=== PATIENT | female | born 1980 | race Caucasian/White ===

== ENCOUNTER 2025-05-12 06:07 | Emergency (ER) | payer OTHER, SELFPAY ==
--- NOTE | 2025-05-12 | ECG_ITS ---
Test Reason : PALPITATIONS Blood Pressure : */* mmHG Vent. Rate : 94 BPM Atrial Rate : 94 BPM P-R Int : 126 ms QRS Dur : 88 ms QT Int : 366 ms P-R-T Axes : 50 42 67 degrees QTcB Int : 457 ms Normal sinus rhythm Cannot rule out Anterior infarct , age undetermined Abnormal ECG When compared with ECG of 20-Mar-2014 22:36, No significant change was found Referred By: Generic ED Physician Electronically Signed By: PRETTY HUFF
--- NOTE | ~2025-05-12 | CT_ITS ---
EXAMINATION: CT CHEST ANGIOGRAPHY WITH IV CONTRAST INDICATION: chest pain, SOB, near syncope, concern for DVT COMPARISON: Chest x-ray from the same day TECHNIQUE: Helical CT scan of the chest was performed following administration of intravenous contrast (65 mL Omnipaque 350). The contrast bolus was timed to optimally opacify the pulmonary arteries. Thin sections were obtained through the pulmonary arteries. Coronal and sagittal reformatted images were generated. 3D/MIP reconstructed images are also obtained and reviewed. This CT exam was performed with one or more of the following dose reduction techniques: automated exposure control, adjustment of the mA and/or kV according to patient size, use of iterative reconstruction technique. DLP: 223 mGy-cm CHEST: THYROID: 1.2 x 1.7 cm left lower thyroid nodule with central calcification. PULMONARY ARTERIES: No intraluminal filling defects are identified within the pulmonary arteries to suggest pulmonary emboli. Pulmonary arteries are normal in size. No evidence of right heart strain. No reflux of contrast into the liver. LUNGS: The lungs are clear. MEDIASTINUM: There is no mediastinal lymphadenopathy. DEACON: There is no hilar lymphadenopathy. CARDIOVASCULATURE: The heart is normal in size. There is no pericardial effusion. The thoracic aorta is normal in caliber. DEGREE OF CORONARY CALCIFICATION: none PLEURA: There is no pleural effusion. No pneumothorax. MAIN AIRWAYS: The mainstem bronchi and proximal branches are patent. AXILLA: There are small bilateral axillary lymph nodes. No enlarged lymph nodes. There is a 1.8 x 2 cm soft tissue density in the upper inner quadrant of the right breast. This has radiopaque density suggestive of a surgical clip. Correlation with clinical history and mammogram recommended. Surgical clip versus calcification in the central upper left breast. UPPER ABDOMEN: The visualized portions of the liver, spleen, and adrenals are unremarkable. BONES AND SOFT TISSUES: Unremarkable. CT/CT angio chest PE protocol IMPRESSION: No evidence of pulmonary emboli. 2 cm lesion in the upper inner quadrant of the right breast and surgical clip. Correlation with clinical history and mammogram recommended. 1.2 x 1.7 cm left thyroid nodule. Follow-up thyroid ultrasound recommended. Electronically signed by: Tammy Sheehan MD 05/12/2025 09:15 AM EST RP
--- NOTE | ~2025-05-12 | XR_ITS ---
CLINICAL HISTORY: palpations 1 view chest x-ray Comparison: None provided Findings: Lungs are mildly hyperinflated and clear. Heart size is normal. No acute fracture. IMPRESSION: 1. No acute findings. This document has been electronically signed by: Jai Ordoñez MD on 05/12/2025 06:54:27
[2025-05-12 06:14] VITALS: BP 156/81; PULSE 104; RESP 20; TEMP 36.2; O2SAT 98
--- NOTE | 2025-05-12 06:58 | ED_ITS ---
HPI - General Adult General Chief complaint: General Medical Stated complaint: Elevated heart rate 122, feverish Time Seen by Provider: 05/12/25 06:46 Source: patient Mode of arrival: ambulatory Limitations: no limitations History of Present Illness ED Provider: Disha Shearer PA-C HPI narrative: Patient is a 44 year old assigned female at with a history of recent recovery from a 6 week pneumonia and an abnormal stress test presenting to the emergency department today with an elevated heart rate, chest pain, and shortness of breath. Patient states that 2 weeks ago she recovered from a 6 week long pneumonia after a course of antibiotics and over the last week she has developed a virus with nasal congestion. Patient states that she has been having intermittent shortness of breath + chest pain for which she had a stress test through [employer] and was told it was abnormal. Patient states that she had an appointment scheduled today with cardiology about this abnormal stress test but had to cancel the appointment because of her current viral illness. Patient states that this morning she woke up feeling an intense warm feeling and her heart rate went up to the 140s. Patient states that she is having intermittent shortness of breath. 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 Patient states that she has had some intermittent lightheadedness as well. Patient denies any recent travel. Patient denies any other complaints at this time. Related Data Allergies Allergy/AdvReac Type Severity Reaction Status Date / Time adhesive (Adhesive) Allergy Unknown ITCHING Verified 05/12/25 06:16 Crustaceans Allergy Mild RASH Uncoded 03/11/20 17:24 Review of Systems 2 Constitutional: Constitutional: Reports as per HPI Eyes: Eyes: Reports as per HPI ENT: Reports as per HPI Cardiovascular: Cardiovascular: Reports as per HPI Respiratory: Respiratory: Reports as per HPI Gastrointestinal: Gastrointestinal: Reports as per HPI Genitourinary: Genitourinary: Reports as per HPI Musculoskeletal: Musculoskeletal: Reports as per HPI Integumentary/Breasts: Skin/Breast: Reports as per HPI Neurologic: Reports as per HPI Psychiatric: Psychiatric: Reports as per HPI Endocrine: Endocrine: Reports as per HPI Hematologic/Lymphatic: Hematologic/Lymphatic: Reports as per HPI Allergic/Immunologic: Allergic/Immunologic: Reports as per HPI [facility] Past Medical History Attestation statement: The following information was validated with the patient. Source: old records reviewed and nursing notes reviewed Social History Social History Smoked in Last 30 Days: No Use of substances other than those prescribed or required for medical reasons: No Advance Directives: No Advance Directives Information Provided: Yes Do you have a plan to hurt others: No Plan Patient : No Physical Exam ED Vital Signs: Vital Signs - 24 hr 05/12/25 06:14 05/12/25 07:41 05/12/25 10:49 Temperature 97.2 F 98.1 F 97.8 F Pulse Rate 104 H 79 74 Respiratory Rate 20 17 14 Blood Pressure 156/81 H 128/72 123/70 Pulse Oximetry 98 97 96 Oxygen Delivery Method Room Air Room Air Room Air 05/12/25 11:18 Temperature 97.8 F Pulse Rate 74 Respiratory Rate 14 Blood Pressure 123/70 Pulse Oximetry 96 Oxygen Delivery Method Room Air BMI result Body Mass Index 8.6 Const General: cooperative, no acute distress, alert and awake Nutritional Appearance: well nourished Orientation/consciousness: patient oriented x3 HENMT Head: Yes normal to inspection and Yes atraumatic Ears: hearing grossly normal bilaterally and external ears normal General nose exam: Normal external nose present, no nasal discharge noted and no epistaxis Face and sinus: Yes normal facial exam, No abrasion and No laceration Mouth: Normal oral and palatal mucosa present, no drooling and no muffled voice Eyes General: appearance normal, both eyes and all related structures Periorbital: periorbital findings normal Eyelids: Yes eyelids normal Conjunctivae: conjunctivae normal Pupils: Equal, round and reactive pupils present EOM: EOMs intact bilaterally Neck Neck: Yes normal visual inspection and Yes full ROM Resp Effort & Inspection: normal respiratory effort and able to speak in complete sentences Neuro General: patient oriented x3, moves all extremities and CN's II-XI intact bilaterally Cranial nerves: Yes Equal, round and reactive pupils present Cognition (Neuro): normal cognition Extrem General: Yes normal to inspection, Yes full ROM and Yes capillary refill normal Psych Appearance: grossly normal Mental Status: mental status grossly normal Affect: normal affect Attitude: cooperative Thought process: Normal thought process present Thought content: Normal thought content present Insight: Good insight present (Psych) Medications Administered Discontinued Medications Generic Name Dose Route Start Last Admin Trade Name Yuliana PRN Reason Stop Dose Admin Sodium Chloride 1,000 mls @ 999 mls/hr 05/12/25 07:15 05/12/25 08:46 Ns IV 05/12/25 08:15 Infused .Q1H1M NADEEM Infusion Iohexol 65 ml 05/12/25 08:43 05/12/25 08:44 Iohexol 350 Mg/Ml 100 Ml Infus..Btl IV 05/12/25 08:44 65 ml ONCE ONE Administration Medical Decision Making Medical Decision Making [facility] Narrative: Patient is a 44 year old assigned female at with a history of recent recovery from a 6 week pneumonia and an abnormal stress test presenting to the emergency department today with an elevated heart rate, chest pain, and shortness of breath. Patient's physical exam was as noted in the physical exam portion of this note. By the time of my evaluation, the patient's pulse had become normal and not tachycardic though she did arrive in the department tachycardic. Patient's blood work was unremarkable. Patient's EKG was unremarkable. Patient's chest x-ray showed no acute process. Patient's CT PE study showed an incidental finding of a thyroid nodule but was otherwise negative. Patient's stress test performed in December of 2024 at [facility] showed: NSR with PACs but during exercise there was upsloping ST depressions in the inferolateral leads + V3-V6 with no chest pain reported during and normal nuclear imaging. Given the patient's concerning history and episode (now resolved) from today - I spoke with the orthopedic nurse practitioner pilot control operator (Dr. Sun) who stated he would coordinate getting the patient seen in the office sooner than her scheduled July follow up with the other cardiology office. I explained my physical exam findings as well as all test results to the patient. I answered all questions asked by the patient. I had an extensive conversation with the patient about continuing to avoid extraneous activity / exercise as the cardiology team at [facility] had recommended and added that she should avoid caffeine / stimulants. I stressed the importance of the patient taking her medication as directed (either prescribed or as the over the counter packaging recommends). I stressed the importance of the patient following up with her primary care provider and the cardiology team. I stressed the importance of the patient returning to the emergency department immediately if her symptoms were to return or if she were to develop any dizziness, shortness of breath, difficulty breathing, chest pain, blurry vision, loss of vision, nausea, vomiting, abdominal pain, fever, chills, back pain, or any other complaints. Patient verbalized agreement and understanding with this treatment plan and discharge. Differential Diagnosis Differential Diagnoses: The differential diagnosis associated with the presentation includes Atypical chest pain Tachycardia NSTEMI STEMI PNA PE Admission/Observation Consideration of admission/observation: Escalation of care including admission/observation considered Patient would have been admitted to the hospital had her work up had any findings where hospital admission was appropriate and her clinical presentation warranted hospital admission. Consult Healthcare Provider Management of the patient was discussed with: Hydraulic Billet Maker (spoke with the orthopedic nurse practitioner pilot control operator as noted in the MDM Rationale portion of this note. ) Lab Data [facility] Lab Attestation statement: I reviewed the patient's lab results. My interpretation of these results are in the MDM Rationale portion of this note. 05/12/25 06:54 05/12/25 06:54 Labs: Lab Results 05/12/25 05/12/25 Range/Units 06:48 06:54 WBC 4.6 L (4.8-10.8) X10*3/uL RBC 4.36 (4.20-5.50) X10*6/uL Hgb 12.7 (12.0-16.0) g/dl Hct 38.7 (37.0-47.0) % MCV 88.8 (80.0-98.0) fL MCH 29.1 (27.0-33.0) pg MCHC 32.8 (31.0-35.0) g/dl RDW 13.6 (11.0-16.0) % Plt Count 242 (160-400) X10*3/uL MPV 9.0 L (9.4-12.3) fL Immature Gran % (Auto) 0.2 (0.0-0.4) % Neut % (Auto) 39.3 L (45-73) % Lymph % (Auto) 42.1 H (20-40) % [facility] % (Auto) 13.0 H (2-11) % Eos % (Auto) 4.3 H (0-4) % Baso % (Auto) 1.1 (0-2) % Lymph # (Auto) 1.9 (1.2-4.9) X10*3/uL [facility] # (Auto) 0.6 (0.1-1.2) X10*3/uL Eos # (Auto) 0.2 (0.0-0.4) X10*3/uL Baso # (Auto) 0.1 (0.0-0.2) X10*3/uL Abs Immat Gran (auto) 0.01 (0.00-0.03) X10*3/uL Absolute Neuts (auto) 1.8 L (2.0-8.3) x10*3/uL Absolute Nucleated RBC 0.000 (0.0-0.012) X10*3/uL Nucleated RBC % (auto) 0.0 (0.0-0.2) /100WBC D-Dimer High Sensitivty < 150 NG/ML Sodium 140 (135-145) mmol/L Potassium 4.4 (3.3-5.1) mmol/L Chloride 106 (96-108) mmol/L Carbon Dioxide 25 (22-29) mmol/L Anion Gap 13 (12-20) BUN 12 (9-16) mg/dL Creatinine 0.71 (0.5-1.4) mg/dL Estim Creat Clear Calc 35.4 Estimated GFR > 60 Random Glucose 105 (60-115) mg/dL Calcium 8.6 (8.4-10.2) mg/dL Magnesium 1.9 (1.6-2.6) mg/dL Total Bilirubin 0.3 (0.0-1.0) mg/dL AST 22 (5-31) U/L ALT 20 (0-31) U/L Alkaline Phosphatase 60 (39-117) U/L Troponin I High Sens < 2.7 (<3.5-17.0) ng/L NT-Pro-B Natriuret Pep 44.5 (<300) pg/mL Total Protein 6.8 (6.5-8.0) g/dL Albumin 4.4 (3.5-5.0) g/dL TSH 4.11 H (0.32-4.0) uIU/mL Free T4 0.88 (0.71-1.85) ng/dL Influenza Type A (PCR) NEGATIVE (Negative) Influenza Type B (PCR) NEGATIVE (Negative) RSV RNA Qual (PCR) NEGATIVE (Negative) SARS-CoV-2 RNA (RT-PCR) NEGATIVE (Negative) Independent Interpretation I performed an independent interpretation of an: EKG, Plain X-Ray and CT Scan Interpretation: My interpretation is in agreement with the radiologist's impression of these imaging studies. L Reason for Exam: palpations CLINICAL HISTORY: palpations 1 view chest x-ray Comparison: None provided Findings: Lungs are mildly hyperinflated and clear. Heart size is normal. No acute fracture. IMPRESSION: 1. No acute findings. This document has been electronically signed by: Jai Ordoñez MD on 05/12/2025 06:54:27 Dictated By: Jai Ordoñez Jr, MD Signed By: Electronically signed by Jai Ordoñez Jr, MD 05/12/25 0655 Report Number: [id number]: Total DLP = 223.00 mGy-cm Reason for Exam: chest pain, SOB, near syncope, concern for DVT EXAMINATION: CT CHEST ANGIOGRAPHY WITH IV CONTRAST INDICATION: chest pain, SOB, near syncope, concern for DVT COMPARISON: Chest x-ray from the same day TECHNIQUE: Helical CT scan of the chest was performed following administration of intravenous contrast (65 mL Omnipaque 350). The contrast bolus was timed to optimally opacify the pulmonary arteries. Thin sections were obtained through the pulmonary arteries. Coronal and sagittal reformatted images were generated. 3D/MIP reconstructed images are also obtained and reviewed. This CT exam was performed with one or more of the following dose reduction techniques: automated exposure control, adjustment of the mA and/or kV according to patient size, use of iterative reconstruction technique. DLP: 223 mGy-cm CHEST: THYROID: 1.2 x 1.7 cm left lower thyroid nodule with central calcification. PULMONARY ARTERIES: No intraluminal filling defects are identified within the pulmonary arteries to suggest pulmonary emboli. Pulmonary arteries are normal in size. No evidence of right heart strain. No reflux of contrast into the liver. LUNGS: The lungs are clear. MEDIASTINUM: There is no mediastinal lymphadenopathy. DEACON: There is no hilar lymphadenopathy. CARDIOVASCULATURE: The heart is normal in size. There is no pericardial effusion. The thoracic aorta is normal in caliber. DEGREE OF CORONARY CALCIFICATION: none PLEURA: There is no pleural effusion. No pneumothorax. MAIN AIRWAYS: The mainstem bronchi and proximal branches are patent. AXILLA: There are small bilateral axillary lymph nodes. No enlarged lymph nodes. There is a 1.8 x 2 cm soft tissue density in the upper inner quadrant of the right breast. This has radiopaque density suggestive of a surgical clip. Correlation with clinical history and mammogram recommended. Surgical clip versus calcification in the central upper left breast. UPPER ABDOMEN: The visualized portions of the liver, spleen, and adrenals are unremarkable. BONES AND SOFT TISSUES: Unremarkable. CT/CT angio chest PE protocol IMPRESSION: No evidence of pulmonary emboli. 2 cm lesion in the upper inner quadrant of the right breast and surgical clip. Correlation with clinical history and mammogram recommended. 1.2 x 1.7 cm left thyroid nodule. Follow-up thyroid ultrasound recommended. Electronically signed by: Tammy Sheehan MD 05/12/2025 09:15 AM [facility] Dictated By: Tammy Sheehan MD Signed By: Electronically signed by Tammy Sheehan MD 05/12/25 0915 I independently interpreted this EKG and am in agreement with the below findings: Vent. Rate: 94 BPM Atrial Rate: 94 BPM P-R Int: 126 ms QRS Dur: 88 ms QT Int: 366 ms P-R-T Axes: 50 42 67 degrees QTcB Int: 457 ms Normal sinus rhythm When compared with ECG of 20-Mar-2014 22:36, No significant change was found DD/ 0614 Radiology Impression Discussion of test interpretation with radiology: I have reviewed the radiologist's reading. Critical Care Time Critical Care Time Critical Care Time: Yes Total Critical Care Time: 34 Attestation: I spent 34 minutes of Critical Care Time with this patient. This does not include time spent on separately reported billable procedures. Discharge Plan Discharge Clinical Impression: Tachycardia, Thyroid nodule Patient Disposition: Home, Self-Care Instructions: Tachycardia (ED) Additional Instructions: Your work up today showed NO EMERGENT process for your symptoms however, it is crucial you follow up with the cardiology team. Your CT chest showed an incidental finding of a 1.2 x 1.7 cm left thyroid nodule which our radiologist recommends an ultrasound for. It is crucial you follow up with your primary care provider about this. Your thyroid function is normal however, this does not confirm the nodule to be benign. Please avoid exertion / strenuous activity and stimulant use of any kind (including caffeine) until you are cleared to do so by the cardiology team. IF you are prescribed home medications and/or you are taking over the counter medications at home - it is very important you continue to do so as prescribed / directed unless told otherwise. Follow up with your primary care provider. Return to the emergency department immediately if your symptoms worsen or if you develop any numbness, tingling, dizziness, shortness of breath, difficulty breathing, chest pain, blurry vision, loss of vision, nausea, vomiting, abdominal pain, fever, chills, back pain, or any other complaints. Please see the information below about our Patient Portal. If you are not yet enrolled in the [facility] Patient Portal, you will receive an enrollment email invitation following your visit to any [facility] setting. You may also self-enroll in the Patient Portal by visiting our website: [email or web address] The following information is required to access the Patient Portal: - Your [facility] Medical Record Number - Your personal home email address (must match what is in your electronic medical record, Registration staff can assist with this) - Name - Date of Capabilities of the Patient Portal: - Message some providers - View upcoming appointments - Access your health summary, medical history, and visit history - View current conditions and allergies - View procedure and lab results - View your medications, including guidelines, side effects, and precautions - Complete pre-appointment questionnaires requested by your provider - Ready summary reports of your office visits and procedures To access the Patient Portal Mobile Amy, follow these directions: - Search [employer] in the Amy Store or [employer] Store - Download the Amy - Search for [facility] - Enter your login/password Referrals: [facility] [Provider Group] Referral Note: Call to establish and follow up with the cardiology team. Stand Alone Forms: Work/School Release Interventions: ED Discharge Assessment Last Done: 05/12/25 11:18 Discharge Date/Time: 05/12/25 11:22 Print Language: Telugu
[2025-05-12 07:01] LABS: MANUAL DIFF FLAG NO
[2025-05-12 07:03] LABS: Hematocrit 38.7 % (37.0-47.0); Hemoglobin 12.7 g/dl (12.0-16.0); Imm Gran Abs Auto 0.01 X10*3/uL (0.00-0.03); Imm Gran Pct Auto 0.2 % (0.0-0.4); Lymphocytes Absolute Auto 1.9 X10*3/uL (1.2-4.9); Mean Corpuscular HGB Conc 32.8 g/dl (31.0-35.0); Mean Corpuscular Hemoglobin 29.1 pg (27.0-33.0); Mean Corpuscular Volume 88.8 fL (80.0-98.0); NRBC Abs Auto 0.000 X10*3/uL (0.0-0.012); NRBC Pct Auto 0.0 /100WBC (0.0-0.2); Platelet Count 242 X10*3/uL (160-400); Red Blood Count 4.36 X10*6/uL (4.20-5.50); White Blood Count 4.6 X10*3/uL (4.8-10.8)
[2025-05-12 07:15] LABS: Alanine Aminotransferase 20 U/L (0-31); Albumin Level 4.4 g/dL (3.5-5.0); Alkaline Phosphatase 60 U/L (39-117); Anion Gap 13 (12-20); Aspartate Amino Transferase 22 U/L (5-31); Blood Urea Nitrogen 12 mg/dL (9-16); Calcium 8.6 mg/dL (8.4-10.2); Carbon Dioxide 25 mmol/L (22-29); Chloride 106 mmol/L (96-108); Creatinine Clr Calc Pharmacy 35.4; Estimated Glomerular Filt Rate > 60; Potassium 4.4 mmol/L (3.3-5.1); Sodium 140 mmol/L (135-145); Total Protein 6.8 g/dL (6.5-8.0)
[2025-05-12 07:18] LABS: D Dimer High Sensitivity < 150 NG/ML
[2025-05-12 07:21] LABS: NT Pro B Type Natriuretic Pept 44.5 pg/mL (<300)
[2025-05-12 07:23] LABS: Troponin-I High Sensitivity < 2.7 ng/L (<3.5-17.0)
[2025-05-12 07:41] VITALS: BP 128/72; PULSE 79; RESP 17; TEMP 36.7; O2SAT 97
[2025-05-12 07:53] LABS: Resp Syncy Virus RNA Qual PCR NEGATIVE (Negative); SARS COV2 PCR INHOUSE NEGATIVE (Negative)
--- NOTE | 2025-05-12 08:16 | PC.NURSE ---
assumed care of pt at 0645. pt a&ox4. vss and up to date. nsr on the steward/stewardess dining room. pt presents to the ED c/o increased dizziness/lightheadedness/chest pain/hot flashes/sob/HR in the 140s upon awakening/getting out of bed this am. pt reports she recently had PNA x a few weeks ago where she finished the abx regimen and initially felt better. pt had a stress test completed at [facility] recently where the results displayed abnormal but no additional interventions were needed aside from following up w/ cardiology. pt had an appt scheduled w/ cardiology x today but had to cancel as she currently has a viral illness. pt otherwise has a 20gIV in the right AC - IVF infusing per provider order. pt pending chest CT to be completed at this time. otherwise on RA in no apparent distress. no sob/wob noted. respirations even/unlabored. plan of care ongoing. call sim placed within reach.
[2025-05-12] MEDS: iohexoL 350 MG/ML 100 ML INFUS..BTL 65 ML IV (08:44)
[2025-05-12 09:51] LABS: Magnesium 1.9 mg/dL (1.6-2.6)
[2025-05-12 10:47] LABS: Free T4 (Free Thyroxine) 0.88 ng/dL (0.71-1.85)
[2025-05-12 10:49] VITALS: BP 123/70; PULSE 74; RESP 14; TEMP 36.6; O2SAT 96
[2025-05-12 11:18] VITALS: BP 123/70; PULSE 74; RESP 14; TEMP 36.6; O2SAT 96
== END 2025-05-12 11:22 | disposition home or self-care (01) ==
PROVIDERS: Physician Assistant Medical; Emergency Provider Emergency Medicine
DX: R00.0 Tachycardia, unspecified (principal); E04.1 Nontoxic single thyroid nodule; Z91.013 Allergy to seafood; Z91.048 Other nonmedicinal substance allergy status; Z03.818 Encounter for observation for suspected exposure to other biological agents ruled out
CPT/HCPCS: 36415; 71045; 71275; 80053; 83735; 83880; 84439; 84443; 84484; 85025; 85379; 87637; 93005; 96360; 99285; Q9967

== ENCOUNTER → 2025-05-12 06:14 | Outpatient (BNV) | payer OTHER, SELFPAY | PROVIDERS: Emergency Provider Emergency Medicine; Visit Provider Internal Medicine | DX: R94.31 Abnormal electrocardiogram [ECG] [EKG] (principal); R00.2 Palpitations | CPT/HCPCS: 93010 ==

== ENCOUNTER → 2025-05-12 06:20 | Outpatient (BNV) | payer OTHER, SELFPAY | PROVIDERS: Visit Provider Radiology Diagnostic Radiology | DX: R07.9 Chest pain, unspecified (principal); R06.02 Shortness of breath; R55 Syncope and collapse; R00.2 Palpitations; N63.12 Unspecified lump in the right breast, upper inner quadrant; E04.1 Nontoxic single thyroid nodule | CPT/HCPCS: 71045; 71275 ==

== ENCOUNTER 2025-05-25 15:18 | Outpatient (AMB) | payer OTHER, SELFPAY ==
--- OUTSIDE RECORDS SUMMARY | 2007-09-18 23:00 | XMS_ITS | Encounter Summary ---
Author Organization [facility] Address [address] [place] [address] Phone Care Team Providers Care Corporate Risk Analyst Name Role Phone Unavailable Primary Care Provider Unavailabl e Encounter Details Date Type Department Care Team (Late st Contact Info) Description 09/19/2007 Hospital Encounter [facility],Outside Imaging [address] [place], [place] [phone] System, Provider Not In, PhD Partners [address] [address] Social History Tobacco Use Types Packs/Day Years Used Date Smoking Tobacco: Former Cigarettes Q uit: 2006 Smokeless Tobacco: Never Comments:Smoking History Pac ks/day: <=0.5 Alcohol Use Standard Drinks/Week Comments Yes 2 (1 standard drink = 0.6 oz pur e alcohol) Education Answer Date Recorded Are you interested in more education? Not on rosa e 10/19/2022 Are you concerned about learning? Not on file 10/19/2022 No 10/19/2022 No 10/19/2022 Food Answer Date Recorded Within the past 6 months we worried whether our food would run out before we got money to buy more. Never True 12/19/2024 Within the past 6 months the food we bought just didn't last and we didn't have enough money to get more. Never True Residential Stability Answer Date Recor ded What is your housing situation today? I have colby sing 12/19/2024 How many times have you move d in the past 12 months? Zero (I did not move) 12/19/2024 Paying for Meds Answer Date Recorded Do you have trouble paying for medicines? No 12/19/2024 Paying Utility Bills Answer Date Record ed Do you have trouble paying your heating or elect ricity bill? No 12/19/2024 Transportation Answer Date Recorded Has the lack of transportati on kept you from medical appointments or from getting medications? No 12/19/2024 Digital Access Answer Date Recorded No 12/19/2024 Yes 12/19/2024 Do you have reliable internet access at home? Ye s 12/19/2024 Do you have a device (e.g., phone, tablet, computer) with a working camera? Yes 12/19/2024 Intimate Partner Violence Answer Date R ecorded Are you denied basic needs s uch as food, clothing, or medical care? No 12/19/2024 In the past 12 months have y ou been in a relationship with a person who hurts, threatens, or tries to control you? No 12/19/2024 Are you denied basic needs s uch as food, clothing, or medical care? No 12/19/2024 In the past 12 months have y ou been in a relationship with a person who hurts, threatens, or tries to control you? No 12/19/2024 Comments Unknown Sex and Gender Information Value Date Recorded Sex Assigned at Not on file Legal Sex Female 8:06 PM EST Gender Identity Not on file Sexual Orientation Not on file documented as of this encounter Functional Status * Calculated C-SSRS Risk Score (Lifetime/Recent) Answer Date of Assessment Author No Risk Indicated 12/19/2024 12:19 PM EDT Aurora Phillip RN * [place] Suicide Severity Rating Scale (Screener/Recent Self-Report) Question Answer Date of Assessment Author 1. Wish to be (Past 1 Month) No 12/19/2024 12:19 PM EDT Aurora Phillip RN 2. Non-Specific Active Suici diamond Thoughts (Past 1 Month) No 12/19/2024 12:19 PM EDT Ashley Phillip RN 6. Suicidal Behavior (Lifetime) No 12:19 PM EDT Aurora Phillip RN documented as of this encounter Plan of Treatment Upcoming Encounters Date Type Department Care Team (Late st Contact Info) Description 08/11/2025 10:15 AM EST Office Visit [facility] [address] [facility] 3rd Floor, [address] [place] [address] Jorge Wang MD 22 [facility], [address] [place] [address] [email or web address] documented as of this encounter Procedures Procedure Name Priority Date/Time Associated Diagnosis Comments BI US BREAST OUTSIDE (NO INTERPRETATION) Routine 09/19/2007 12:00 AM EDT documented in this encounter Results * US Breast Outside (No Interpretation) (09/19/2007 12:00 AM EDT) Narrative SYSTEMGENERATED, DOCUMENTATION - 06/07/2021 3:50 PM EST This study is for PACS storage only and not for interpretation. us Provider Not In System PhD IMG OUTSIDE IMAGING W /OUT INTERPRETATION Final Result documented in this encounter Visit Diagnoses Not on filedocumented in this encounter Additional Source Comments The information contained in this document represents components of the legal health record. It is not the complete legal health record.[facility]
--- OUTSIDE RECORDS SUMMARY | 2009-11-03 23:00 | XMS_ITS | Encounter Summary ---
Author Organization [facility] Address [address] [place] [address] Phone Care Team Providers Care Recycling Technician Name Role Phone Unavailable Primary Care Provider Unavailabl e Encounter Details Date Type Department Care Team (Late st Contact Info) Description 11/04/2009 Hospital Encounter [facility],Outside Imaging 30 [place], [place] [phone] System, Provider Not In, PhD Partners [address] [address] Social History Tobacco Use Types Packs/Day Years [...] 12:19 PM EDT Aurora Phillip RN * [place] Suicide Severity Rating Scale (Screener/Recent Self-Report) Question [...] Description 08/11/2025 10:15 AM EST Office Visit [facility] 22 [facility] 3rd Floor, [address] [place] [address] Jorge Wang MD 22 [facility], [address] [place] [address] [email or web address] documented as of this encounter Procedures Procedure [...] It is not the complete legal health record.[facility]
--- OUTSIDE RECORDS SUMMARY | 2010-05-18 | XMS_ITS | Encounter Summary ---
Author Organization [facility] Address [address] [place] [address] Phone Care Team Providers Care Pharmacy Associate Name Role Phone Unavailable Primary Care Provider Unavailabl e Encounter Details Date Type Department Care Team (Late st Contact Info) Description 05/18/2010 Hospital Encounter [facility],Outside Imaging 30 [place], [place] [phone] System, Provider Not In, PhD Partners [address] [address] Social History Tobacco Use Types Packs/Day Years [...] 12:19 PM EDT Aurora Phillip RN * [place] Suicide Severity Rating Scale (Screener/Recent Self-Report) Question [...] Description 08/11/2025 10:15 AM EST Office Visit [facility] 22 [facility] 3rd Floor, [address] [place] [address] Jorge Wang MD 22 [facility], [address] [place] [address] [email or web address] documented as of this encounter Procedures Procedure Name Priority Date/Time Associated Diagnosis Comments BI US BREAST OUTSIDE (NO INTERPRETATION) Routine 05/18/2010 12:00 AM EST documented in this encounter Results * US Breast Outside (No Interpretation) (05/18/2010 12:00 AM EST) Narrative SYSTEMGENERATED, DOCUMENTATION - 06/07/2021 4:00 PM EST This study is for PACS storage only and not for interpretation. us Provider Not In System PhD IMG OUTSIDE IMAGING W /OUT INTERPRETATION Final Result documented in this encounter Visit Diagnoses Not on filedocumented in this encounter Additional Source Comments The information contained in this document represents components of the legal health record. It is not the complete legal health record.[facility]
--- OUTSIDE RECORDS SUMMARY | 2011-03-20 23:00 | XMS_ITS | Encounter Summary ---
Author Organization [facility] Address [address] [place] [address] Phone Care Team Providers Care County Attorney Name Role Phone Unavailable Primary Care Provider Unavailabl e Encounter Details Date Type Department Care Team (Late st Contact Info) Description 03/21/2011 Hospital Encounter [facility],Outside Imaging 30 [place], [place] [phone] System, Provider Not In, PhD Partners [address] [address] Social History Tobacco Use Types Packs/Day Years [...] 12:19 PM EDT Aurora Phillip RN * [place] Suicide Severity Rating Scale (Screener/Recent Self-Report) Question [...] Description 08/11/2025 10:15 AM EST Office Visit [facility] 22 [facility] 3rd Floor, [address] [place] [address] Jorge Wang MD 22 [facility], [address] [place] [address] [email or web address] documented as of this encounter Procedures Procedure Name Priority Date/Time Associated Diagnosis Comments BI US BREAST OUTSIDE (NO INTERPRETATION) Routine 03/21/2011 12:00 AM EDT documented in this encounter Results * US Breast Outside (No Interpretation) (03/21/2011 12:00 AM EDT) Narrative SYSTEMGENERATED, DOCUMENTATION - 06/07/2021 3:54 PM EST This study is for PACS storage only and not for interpretation. us Provider Not In System PhD IMG OUTSIDE IMAGING W /OUT INTERPRETATION Final Result documented in this encounter Visit Diagnoses Not on filedocumented in this encounter Additional Source Comments The information contained in this document represents components of the legal health record. It is not the complete legal health record.[facility]
--- OUTSIDE RECORDS SUMMARY | 2013-02-24 23:05 | XMS_ITS | Encounter Summary ---
Author Organization [facility] Address [address] [place] [address] Phone Care Team Providers Care Project Manager Senior Name Role Phone Unavailable Primary Care Provider Unavailabl e Encounter Details Date Type Department Care Team (Late st Contact Info) Description 02/25/2013 12:05 AM EDT Hospital Encounter [facility],Outside Imaging 30 [place] [address] System, Provider Not In, PhD Partners [address] [address] Social History Tobacco Use Types Packs/Day Years [...] 12:19 PM EDT Aurora Phillip RN * [place] Suicide Severity Rating Scale (Screener/Recent Self-Report) Question Answer Date of Assessment Author 1. Wish to be (Past 1 Month) No 12/19/2024 12:19 PM ABET Aurora Phillip RN 2. Non-Specific Active Suici diamond Thoughts (Past 1 Month) No 12/19/2024 12:19 PM EDT Ashley Phillip RN 6. Suicidal Behavior (Lifetime) No 12:19 PM ABET Aurora Phillip RN documented as of this encounter Plan of Treatment Upcoming Encounters Date Type Department Care Team (Late st Contact Info) Description 08/11/2025 10:15 AM EST Office Visit [facility] 22 [facility] 3rd Floor, [address] [place] [address] Jorge Wang MD [address] [facility], [address] [place] [address] [email or web address] documented as of this encounter Procedures Procedure Name Priority Date/Time Associated Diagnosis Comments BI US BREAST OUTSIDE (NO INTERPRETATION) Routine 02/25/2013 12:05 AM EDT documented in this encounter Results * US Breast Outside (No Interpretation) (02/25/2013 12:05 AM EDT) Narrative SYSTEMGENERATED, DOCUMENTATION - 06/07/2021 3:52 PM EST This study is for PACS storage only and not for interpretation. us Provider Not In System PhD IMG OUTSIDE IMAGING W /OUT INTERPRETATION Final Result documented in this encounter Visit Diagnoses Not on filedocumented in this encounter Additional Source Comments The information contained in this document represents components of the legal health record. It is not the complete legal health record.[facility]
[2025-05-25 15:28] VITALS: BP 100/62; PULSE 80; BMI 25.0
--- NOTE | 2025-05-25 15:28 | A.OFFVIS_ITS ---
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 Ticket Attendant Required: No Allergies adhesive (Adhesive) Allergy (Unknown, Verified 05/25/25 15:30) ITCHING Crustaceans Allergy (Mild, Uncoded 05/25/25 15:30) RASH Medication List - Last Reconciled 05/25/25 by Neyda Quintana NP-C aspirin 81 mg PO DAILY hydroxyzine HCl 10 mg PO ONCE PRN norethindrone (contraceptive) (April) 0.35 mg PO DAILY HPI 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 In the emergency room, the patient's lab work was unremarkable, the EKG was normal, and a chest x-ray showed no acute process. A CT scan was negative for pulmonary embolism, and showed no coronary calcifications. Tests for influenza, RSV, and COVID were negative. Troponin and BNP levels were normal. A stress test from [facility] showed sinus rhythm with PACs and upsloping ST depressions in the inferior-lateral leads and V3 through V6, with no chest discomfort and normal nuclear imaging. An echocardiogram from 12/31/2024 revealed an EF of 65%, no wall motion abnormalities, normal atrial size, and no significant valve abnormalities. The most recent EKG from 05/12/2025 showed sinus rhythm at a rate of 94 and could not exclude a prior anterior infarct. She reports having symptoms of heart palpitations followed by vague chest discomfort for over a year. At times she will get mild aching discomfort into her left arm. Occassional lightheadedness has occurred if she gets up quickly. S he recalls fainting once while , 15 years ago and none since then. Her breathing is normal and activity tolerance reported as good. The patient reports a history of consuming up to four cups of black tea daily but has stopped since the ER visit. Symptoms have improved but not fully resolved despite caffeine cessation. She has no cardiac history and denies diagnosis of HTN. HLD or DM. She did smoke in the past but quit in 2017. No routine alcohol use. Father has history of CAD with coronary stent in his late 50s. Mother has history of mitral valve prolapse. [facility] Family History Father History of cardiac cath H/O heart artery stent Review of Systems Const All systems reviewed & are unremarkable except as noted in HPI and below ENT Denies dizziness Card Details: Heart palpitations - prior to the ache in chest Reports chest pain (ache in mid chest), Denies chest pain at rest, Denies chest pain with activity, Denies rapid heart rate, Denies pedal edema, Denies edema, Denies leg edema, Denies lightheadedness, Denies palpitations, Denies dyspnea, Denies dyspnea on exertion and Denies orthopnea Resp Denies cough, Denies dyspnea and Denies dyspnea on exertion GI Denies hematochezia and Denies change in stool character Musc Denies abnormal gait, Denies limited range of motion, Denies muscle cramps, Denies muscle weakness, Denies numbness, Denies radiating pain into limb, Denies stiffness and Denies tingling Neuro Denies abnormal gait, Denies dizziness, Denies numbness and Denies tingling Endo Denies palpitations Physical Exam Vital Signs: Last Vital Signs Pulse 80 05/25/25 15:28 BP 100/62 05/25/25 15:28 BMI result Body Mass Index 25.0 Const General: cooperative, healthy appearing, comfortable and no acute distress Orientation/consciousness: patient oriented x3 Neck Neck: Yes normal visual inspection Resp Effort & Inspection: normal respiratory effort Auscultation: clear to auscultation bilaterally, no crackles, no rales, no rhonchi and no wheezes Cardio Rate: regular rate Rhythm: regular rhythm Heart sounds: S1 normal heart sound present, S2 normal heart sound present, no gallops, no murmurs and no rubs Neuro General: patient oriented x3 Extrem General: Yes normal to inspection Psych Appearance: grossly normal Mental Status: mental status grossly normal Speech and movement: Normal speech and movement present Assessment & Plan Assessment & Plan (1) Palpitations: Code(s): R00.2 - Palpitations Category: Medical Plan: Report of brief fluttering in chest and elevated rates at times, followed by vague ache in chest. Recent ER evaluation without significant findings. Recent echocardiogram with normal EF and normal atrial sizes. Recent nuclear stress test with normal myocardial perfusion imaging. EKG from 05/12/2025 showing sinus rhythm, normal AZ, QRS and QTC intervals, rate 94. She could be having arrhythmia such as atrial tachycardia or extrasystoles. Will check 7 day Holter monitor. Plan to call her with the results. Cardiology follow-up 6-8 weeks, sooner if needed. (2) Chest discomfort: Code(s): R07.89 - Other chest pain Category: Medical Plan: Nonexertional chest discomfort as described above. Recent ER evaluation and she ruled out for ACS. Not likely to be related to CAD in the setting of normal echo, nuclear stress test and recent CT showing no coronary calcifications. She also has low cardiac risk profile with family history only. Checking for arrhythmia as above (3) Abnormal stress ECG: Code(s): R94.39 - Abnormal result of other cardiovascular function study Category: Medical Plan: Exercise EKGs with abnormal findings suggesting ischemia however followed by nuclear imaging showing no infarct or ischemia. (4) Hospital discharge follow-up: Code(s): Z51.89 - Encounter for other specified aftercare Category: Medical Plan: ED notes, Marcelino Mendenhall notes reviewed Plan Time spent on chart review, documentation, interview, assessment Orders: Orders ECG 7 day holter monitor Today R00.2 - Palpitations, R94.39 - Abnormal result o f other cardiovascular function study Coding Level of Care Code New Pt Level 4 (73075) Complex visit Add On G2211 Diagnoses Palpitations R00.2 Chest discomfort R07.89 Abnormal stress ECG R94.39 Hospital discharge follow-up Z51.89 Time Spent (min) 32
--- OUTSIDE RECORDS SUMMARY | 2025-05-25 18:21 | XMS_ITS | Encounter Summary ---
Author Organization [facility] Address [address] [facility] [address] [place] [address] Phone Care Team Providers Care Phlebotomy Lab Assistant Name Role Phone Dario Melendez MD Primary Care Prov ider Encounter Details Date Type Department Care Team (Late Contact Info) Description 06/07/2021 Ancillary Orders [facility],Outside Imaging [address] [place] [address] System, Provider Not In, [facility] [address] [address] Social History Tobacco Use Types Packs/Day Years Used Date Smoking Tobacco: Former Cigarettes Q uit: 2007 Smokeless Tobacco: Never Comments:Smoking History Pac ks/day: <=0.5 Alcohol Use Standard Drinks/Week Comments Yes 2 (1 standard drink = 0.6 oz pur e alcohol) Comments Unknown Sex and Gender Information Value Date Recorded Sex Assigned at Not on file Legal Sex Female 8:06 PM EST Gender Identity Not on file Sexual Orientation Not on file documented as of this encounter Plan of Treatment Upcoming Encounters Date Type Department Care Team (Late st Contact Info) Description 08/11/2025 10:15 AM EST Office Visit [facility] [address] [place] [address] 3rd Floor, [address] [place] [address] Jorge Wang MD [address] [facility], [address] [place] [address] documented as of this encounter Results * US Breast Outside (No Interpretation) (04/20/2015 12:05 AM EDT) Narrative SYSTEMGENERATED, DOCUMENTATION - 06/07/2021 3:57 PM EST This study is for PACS storage only and not for interpretation. us Provider Not In System [facility] OUTSIDE IMAGING W /OUT INTERPRETATION Final Result documented in this encounter Visit Diagnoses Not on filedocumented in this encounter Care Teams Phlebotomy Lab Assistant Relationship Specialty Start Date End Date Dario Melendez MD [address] [place] [phone] [email or web address] PCP - General Family Medicine 12/25/18 documented as of this encounter Additional Source Comments The information contained in this document represents components of the legal health record. It is not the complete legal health record.[facility]
--- OUTSIDE RECORDS SUMMARY | 2025-05-25 18:21 | XMS_ITS | Encounter Summary ---
Author Organization [facility] Address [address] [facility] [address] [place] [address] Phone Care Team Providers Care Site Auditor Name Role Phone Dario Melendez MD Primary Care Prov ider Encounter Details Date Type Department Care Team (Late Contact Info) Description 06/07/2021 Ancillary Orders [facility],Outside Imaging [address] [place] [address] System, Provider Not In, [facility] [address] [address] Social History Tobacco Use Types Packs/Day Years [...] Description 08/11/2025 10:15 AM EST Office Visit [facility] [address] [place] [address] 3rd Floor, [address] [place] [address] Jorge Wang MD [address] [facility], [address] [place] [address] documented as of this encounter Results * US Breast Outside (No Interpretation) (09/19/2007 12:00 AM EDT) Narrative SYSTEMGENERATED, DOCUMENTATION - 06/07/2021 3:50 PM EST This study is for PACS storage only and not for interpretation. us Provider Not In System PhD [facility] OUTSIDE IMAGING W /OUT INTERPRETATION Final Result documented in this encounter Visit Diagnoses Not on filedocumented in this encounter Care Teams Site Auditor Relationship Specialty Start Date End Date Dario Melendez MD [address] [place] [phone] [email or web address] PCP - General Family Medicine 12/25/18 documented as of this encounter Additional Source Comments The information contained in this document represents components of the legal health record. It is not the complete legal health record.[facility]
--- OUTSIDE RECORDS SUMMARY | 2025-05-25 18:21 | XMS_ITS | Encounter Summary ---
Author Organization [facility] Address [address] [facility] [address] [place] [address] Phone Care Team Providers Care Retail Bakery Manager Name Role Phone Nick Curran MD Primary Care Provider Dario Melendez MD Primary Care Prov ider Encounter Details Date Type Department Care Team (Late st Contact Info) Description 06/15/2016 Procedure Pass [facility] - CT, [address] [address] Social History Tobacco Use Types Packs/Day Years Used Date Smoking Tobacco: Former Comments:Smoking History Pac ks/day: <=0.5 Alcohol Use Standard Drinks/Week Comments No 0 (1 standard drink = 0.6 oz pur [...] Description 08/11/2025 10:15 AM EST Office Visit [facility] [address] [place] [address] [address]rd Floor, [address] [place] [address] Jorge Wang MD [address] [facility], [address] [place] [address] documented as of this encounter Visit Diagnoses Not on filedocumented in this encounter Care Teams Retail Bakery Manager Relationship Specialty Start Date End Date Nick Curran MD [address] [place] [address] [place] [address] PCP - General Internal Medicine 04/17/16 12/24/18 Dario Melendez MD [address] [place] [phone] [email or web address] PCP - General Family Medicine 12/25/18 documented as of this encounter Additional Source Comments The information contained in this document represents components of the legal health record. It is not the complete legal health record.[facility]
--- OUTSIDE RECORDS SUMMARY | 2025-05-25 18:21 | XMS_ITS | Encounter Summary ---
Author Organization [facility] Address [address] [place] [address] Phone Care Team Providers Care Metal Fitter Name Role Phone Nick Curran MD Primary Care Provider Dario Melendez MD Primary Care Prov ider Reason for Referral * - Closed Specialty Diagnoses / Procedures Referred By Deuce ashford Referred To Contact Diagnoses Chest pain, unspecified type Procedures Stress Test Exercise Ruby Zafar PA Phone: tel: fax: [email or web address] Referral ID Status Reason Start Date Expiration Date Visits Re quested Visits Authorized [id number] Closed 10/31/2018 10/31/2019 1 1 Encounter Details Date Type Department Care Team (Late st Contact Info) Description 10/31/2018 Transcribe [facility] [address] [facility] 3rd Floor, [address] [place], [place] [phone] Ruby Zafar PA [address] [place], [place] [phone] m Chest pain, unspecified type (Primary Dx) Social History Tobacco Use Types Packs/Day Years Used Date Smoking Tobacco: Former Comments:Smoking History Pac ks/day: <=0.5 Alcohol Use Standard Drinks/Week Comments Yes 0 (1 standard drink = 0.6 oz pur e alcohol) social Comments Unknown Sex and Gender Information Value Date Recorded Sex Assigned at Not on file Legal Sex Female 8:06 PM EST Gender Identity Not on file Sexual Orientation Not on file documented as of this encounter Plan of Treatment Upcoming Encounters Date Type Department Care Team (Late st Contact Info) Description 08/11/2025 10:15 AM EST Office Visit [facility] [address] [facility] 3rd Floor, [address] [place] [address] Jorge Wang MD [address] [facility], [address] [place], [place] [phone] documented as of this encounter Procedures Procedure Name Priority Date/Time Associated Diagnosis Comments STRESS TEST EXERCISE Routine 12/25/2018 3:36 PM E DT Chest pain, unspecified type documented in this encounter Results * Stress Test Exercise (12/25/2018 3:36 PM EDT) Anatomical Region Laterality Modality Heart Ultrasound Other Narrative 12/27/2018 11:29 AM EDT Response to Stress Patient exercised for 11:54 minutes on a standard Karl protocol achieving 13.4 METs and 99% MPHR ( 179 BPM). The test was terminated due to fatigue. SUMMARY: 1. RESTING ECG: Sinus rhythm with nonspecific ST/T wave normalities 2. EXERCISE ECG: Exercise noted to have up to 1 mm horizontal to upsloping ST depressions in the inferior leads, 1-1.5mm horizontal ST depressions in V5-V6 3. SYMPTOMS: No chest discomfort with exercise, did report a twinge pain in shoulder 3 minutes in recovery, this resolved spontaneously prior to discharge from the stress lab 4. PHYSIOLOGY: Appropriate exercise physiology. Resting heart rate of 86 bpm aileen to a max heart rate of 179 bpm, this represents 99 % MPHR. Resting BP of 102/78 aileen to a max BP of 140/70. Vital signs stable and returned to baseline prior to discharge from the lab. Achieved 13.4 METs consistent with good functional capacity for age. 5. ARRHYTHMIA: No ectopy CONCLUSION: Abnormal ECG portion of exercise stress test with ECG changes suggestive of ischemia and with symptoms concerning for angina though not classic. Appropriate exercise physiology. Good functional capacity. Barbosa treadmill score of +4.5 indicating moderate risk of cardiac event. Recommend repeating stress test with nuclear imaging, due to her age would only need stress images. This was communicated to the ordering provider. See attached stress report for full details. Khris Pierson, LABORATORY EQUIPMENT INSTALLER . us Ruby ROGERS CV STRESS ORDERAB LES Final Result documented in this encounter Visit Diagnoses Diagnosis Chest pain, unspecified type- Primary documented in this encounter Care Teams Metal Fitter Relationship Specialty Start Date End Date Nick Curran MD [address] [place] [address] [place] [address] PCP - General Internal Medicine 04/17/16 12/24/18 Dario Melendez MD [address] [place] [phone] [email or web address] PCP - General Family Medicine 12/25/18 documented as of this encounter Additional Source Comments The information contained in this document represents components of the legal health record. It is not the complete legal health record.[facility]
--- OUTSIDE RECORDS SUMMARY | 2025-05-25 18:21 | XMS_ITS | Encounter Summary ---
Author Organization [facility] Address [address] [facility] [address] [place] [address] Phone Care Team Providers Care Vender Name Role Phone Dario Melendez MD Primary Care Prov ider Reason for Referral * Outpatient Procedure - Closed Specialty Diagnoses / Procedures Referred By Deuce ashford Referred To Contact Radiology Diagnoses Breast lump Procedures Mammogram Diagnostic Post Procedure (Right) Georgian Escobar MD Phone: tel: fax: mailto: Referral ID Status Reason Start Date Expiration Date Visits Re quested Visits Authorized [id number] Closed 07/01/2021 07/01/2022 1 1 Encounter Details Date Type Department Care Team (Late st Contact Info) Description 07/01/2021 Ancillary Orders [facility] [address] [place] [address] Georgina Escobar MD [address] [facility], 2nd [place] [address] [email or web address] Breast lump Social History Tobacco Use Types Packs/Day Years [...] Description 08/11/2025 10:15 AM EST Office Visit [facility] [address] [facility] 3rd Floor, [address] [place] [address] Jorge Wang MD [address] [facility], [address] [place] [address] [email or web address] documented as of this encounter Results * BI MAMMOGRAM DIAGNOSTIC POST PROCEDURE NO TOMOSYNTHESIS NO CAD (RIGHT) (07/01/2021 12:19 PM EST) Anatomical Region Laterality Modality Breast Right, Breast Bilateral Right M ammography 07/01/2021 12:0 3 PM EST Addenda Addendum by Beck Inman MD on 07/05/2021 9:49 AM EST ADDENDUM: FINAL PATHOLOGIC DIAGNOSIS: RIGHT BREAST, 3 O'CLOCK UPPER / INNER QUADRANT, CORE BIOPSY: Fibroadenoma. Pathology findings are benign and concordant with the imaging findings. Clinical follow-up is recommended. Otherwise, patient may return to routine screening mammogram. Last bilateral mammogram on file is dated August 10, 2020. Impressions 07/01/2021 12:15 PM EST Right ultrasound-guided core biopsy of 2.1 cm solid mass at 3 o'clock position at 5 cm from the nipple completed. Pathology pending. Concordance addendum will be generated when pathologic analysis is complete. Narrative 07/01/2021 12:15 PM EST Procedure: BI CARE HOME BIOPSY OF BREAST (RIGHT), BI MAMMOGRAM DIAGNOSTIC POST PROCEDURE (RIGHT) History: Previous diagnostic mammogram/ultrasound of the palpable concern in the right breast on August 10, 2020 at outside facility, describes a 1.9 cm x 1.3 cm x 2.1 cm solid mass at 3 o'clock position at 5 cm from the nipple and an ultrasound-guided needle core biopsy was recommended (BI-RADS 4). A biopsy of this palpable right breast mass was performed at the surgeon's office on May 23, 2021, with pathology results showing benign breast tissue with mild fibrocystic changes. Patient was given options for next step, and she elected for an ultrasound-guided needle core biopsy. The procedure was explained to the patient including benefits and alternatives. The risks, including but not limited to infection and bleeding, were reviewed and the patient agreed to undergo the procedure, signing the consent form. Her identity was confirmed with two unique patient identifiers. Right breast ultrasound-guided core biopsy: The patient's right breast was imaged with the [facility] ultrasound [place] and images of the 2.1 cm x 1.3 cm x 2.0 cm mass at 3 o'clock at the distance of 5 cm from the nipple were obtained. The breast was prepped for the procedure and area was anesthetized with a local anesthetic (7 cc of lidocaine 1% buffered with Sodium Bicarbonate 4.2% (9cc: 1cc). Using a Bard 14-gauge 13 cm needle, one pass was made through the area and 3 specimens were obtained. A Shiloh shape micromarker was placed at the site of the core biopsy. The patient experienced no complications during the procedure. Postprocedure full field digital mammogram: The patient was then moved to a digital mammographic room where CC, MLO, ML 90 degrees, cleavage full-field/spots digital mammographic images of the breast were obtained. Only the 2nd cleavage view show satisfactory placement of the Shiloh shape micromarker within the targeted mass in the medial breast. The targeted mass is located far medial and posterior depth and could not be included on the other views. Total estimated blood loss: Minimal Procedure Note Beck Inman MD - 07/01/2021 Procedure: BI CARE HOME BIOPSY OF BREAST (RIGHT), BI MAMMOGRAM DIAGNOSTIC POSTPROCEDURE (RIGHT) History: Previous diagnostic mammogram/ultrasound of the palpable concernin the right breast on August 10, 2020 at outside facility, describes a1.9 cm x 1.3 cm x 2.1 cm solid mass at 3 o'clock position at 5 cm from thenipple and an ultrasound-guided needle core biopsy was recommended(BI-RADS 4). A biopsy of this palpable right breast mass was performed atthe surgeon's office on May 23, 2021, with pathology results showingbenign breast tissue with mild fibrocystic changes. Patient was givenoptions for next step, and she elected for an ultrasound-guided needlecore biopsy. The procedure was explained to the patient including benefits andalternatives. The risks, including but not limited to infection andbleeding, were reviewed and the patient agreed to undergo the procedure,signing the consent form. Her identity was confirmed with two uniquepatient identifiers. Right breast ultrasound-guided core biopsy: The patient's right breast was imaged with the [facility] ultrasound unit andimages of the 2.1 cm x 1.3 cm x 2.0 cm mass at 3 o'clock at the distanceof 5 cm from the nipple were obtained. The breast was prepped for theprocedure and area was anesthetized with a local anesthetic (7 cc oflidocaine 1% buffered with Sodium Bicarbonate 4.2% (9cc: 1cc). Using aBard 14-gauge 13 cm needle, one pass was made through the area and 3specimens were obtained. A Shiloh shape micromarker was placed at the siteof the core biopsy. The patient experienced no complications during theprocedure. Postprocedure full field digital mammogram: The patient was then moved to a digital mammographic room where CC, MLO,ML 90 degrees, cleavage full-field/spots digital mammographic images ofthe breast were obtained. Only the 2nd cleavage view show satisfactoryplacement of the [place] shape micromarker within the targeted mass in themedial breast. The targeted mass is located far medial and posterior depthand could not be included on the other views. Total estimated blood loss: Minimal IMPRESSION: Right ultrasound-guided core biopsy of 2.1 cm solid mass at 3 o'clockposition at 5 cm from the nipple completed. Pathology pending. Concordance addendum will be generated when pathologic analysis iscomplete. us Georgina Escobar MD IM MG EXAMS Edited Resul t - Final documented in this encounter Visit Diagnoses Diagnosis Breast lump Lump or mass in breast Breast lump Lump or mass in breast documented in this encounter Care Teams Vender Relationship Specialty Start Date End Date Dario Melendez MD [address] [place] [phone] [email or web address] PCP - General Family Medicine 12/25/18 documented as of this encounter Additional Source Comments The information contained in this document represents components of the legal health record. It is not the complete legal health record.[facility]
--- OUTSIDE RECORDS SUMMARY | 2025-05-25 18:21 | XMS_ITS | Encounter Summary ---
Author Organization [facility] Address [address] [facility] [address] [place] [address] Phone Care Team Providers Care Commercial Roofing Estimator Name Role Phone Dario Melendez MD Primary Care Prov ider Encounter Details Date Type Department Care Team (Late Contact Info) Description 06/07/2021 Ancillary Orders [facility],Outside Imaging [address] [place] [address] System, Provider Not In, PhD Partners [address] [address] Social History Tobacco Use Types Packs/Day Years [...] Description 08/11/2025 10:15 AM EST Office Visit [facility] [address] [place] [address] 3rd Floor, [address] [place] [address] Jorge Wang MD [address] [facility], [address] [place] [address] documented as of this encounter Results * US Breast Outside (No Interpretation) (11/04/2009 12:00 AM EDT) Narrative SYSTEMGENERATED, DOCUMENTATION - 06/07/2021 3:51 PM EST This study is for PACS storage only and not for interpretation. us Provider Not In System PhD IMG OUTSIDE IMAGING W /OUT INTERPRETATION Final Result documented in this encounter Visit Diagnoses Not on filedocumented in this encounter Care Teams Commercial Roofing Estimator Relationship Specialty Start Date End Date Dario Melendez MD [address] [place] [phone] [email or web address] PCP - General Family Medicine 12/25/18 documented as of this encounter Additional Source Comments The information contained in this document represents components of the legal health record. It is not the complete legal health record.[facility]
--- OUTSIDE RECORDS SUMMARY | 2025-05-25 18:21 | XMS_ITS | Encounter Summary ---
Author Organization [facility] Address [address] [facility] [address] [place] [address] Phone Care Team Providers Care Joint Machine Operator Name Role Phone Dario Melendez MD Primary Care Prov ider Encounter Details Date Type Department Care Team (Late Contact Info) Description 06/07/2021 Ancillary Orders [facility],Outside Imaging 30 [place] [address] System, Provider Not In, PhD Partners [address] [address] Social History Tobacco Use Types Packs/Day Years [...] Description 08/11/2025 10:15 AM EST Office Visit [facility] [address] [place] [address] 3rd Floor, [address] [place] [address] Jorge Wang MD [address] [facility], [address] [place] [address] documented as of this encounter Results * US Breast Outside (No Interpretation) (05/18/2010 12:00 AM EST) Narrative SYSTEMGENERATED, DOCUMENTATION - 06/07/2021 4:00 PM EST This study is for PACS storage only and not for interpretation. us Provider Not In System PhD IMG OUTSIDE IMAGING W /OUT INTERPRETATION Final Result documented in this encounter Visit Diagnoses Not on filedocumented in this encounter Care Teams Joint Machine Operator Relationship Specialty Start Date End Date Dario Melendez MD [address] [place] [phone] [email or web address] PCP - General Family Medicine 12/25/18 documented as of this encounter Additional Source Comments The information contained in this document represents components of the legal health record. It is not the complete legal health record.[facility]
--- OUTSIDE RECORDS SUMMARY | 2025-05-25 18:21 | XMS_ITS | Encounter Summary ---
Author Organization [facility] Address [address] [address] [facility] [address] [place] [address] Phone Care Team Providers Care Director Semiconductor Name Role Phone Dario Melendez MD Primary Care Prov ider Encounter Details Date Type Department Care Team (Late Contact Info) Description 06/07/2021 Ancillary Orders [facility],Outside Imaging 30 [place] [address] System, Provider Not In, PhD Partners [address] [address] Social History Tobacco Use Types Packs/Day Years [...] Description 08/11/2025 10:15 AM EST Office Visit [facility] [address] [place] [address] 3rd Floor, [address] [place] [address] Jorge Wang MD [address] [facility], [address] [place] [address] documented as of this encounter Results * US Breast Outside (No Interpretation) (03/21/2011 12:00 AM EDT) Narrative SYSTEMGENERATED, DOCUMENTATION - 06/07/2021 3:54 PM EST This study is for PACS storage only and not for interpretation. us Provider Not In System PhD IMG OUTSIDE IMAGING W /OUT INTERPRETATION Final Result documented in this encounter Visit Diagnoses Not on filedocumented in this encounter Care Teams Director Semiconductor Relationship Specialty Start Date End Date Dario Melendez MD [address] [place] [phone] [email or web address] PCP - General Family Medicine 12/25/18 documented as of this encounter Additional Source Comments The information contained in this document represents components of the legal health record. It is not the complete legal health record.[facility]
--- OUTSIDE RECORDS SUMMARY | 2025-05-25 18:21 | XMS_ITS | Encounter Summary ---
Author Organization [facility] Address [address] [facility] [address] [place] [address] Phone Care Team Providers Care Hide And Skin Classer Name Role Phone Dario Melendez MD Primary Care Prov ider Encounter Details Date Type Department Care Team (Late st Contact Info) Description 06/07/2021 Ancillary Orders [facility],Outside Imaging 30 [place] [address] System, Provider Not In, PhD Partners [address] [address] Social History Tobacco Use Types Packs/Day Years [...] Description 08/11/2025 10:15 AM EST Office Visit [facility] [address] [place] [address] 3rd Floor, [address] [place] [address] Jorge Wang MD [address] [facility], [address] [place] [address] documented as of this encounter Results * Mammogram Outside (No Interpretation) (02/25/2013 12:00 AM EDT) Narrative SYSTEMGENERATED, DOCUMENTATION - 06/07/2021 3:49 PM EST This study is for PACS storage only and not for interpretation. us Provider Not In System PhD IMG OUTSIDE IMAGING W /OUT INTERPRETATION Final Result documented in this encounter Visit Diagnoses Not on filedocumented in this encounter Care Teams Hide And Skin Classer Relationship Specialty Start Date End Date Dario Melendez MD [address] [place] [address] [phone] [email or web address] PCP - General Family Medicine 12/25/18 documented as of this encounter Additional Source Comments The information contained in this document represents components of the legal health record. It is not the complete legal health record.[facility]
--- OUTSIDE RECORDS SUMMARY | 2025-05-25 18:21 | XMS_ITS | Encounter Summary ---
Author Organization [facility] Address [address] [facility] [address] [place] [address] Phone Care Team Providers Care Sr. Pricing Analyst Name Role Phone Dario Melendez MD Primary Care Prov ider Encounter Details Date Type Department Care Team (Late Contact Info) Description 06/07/2021 Ancillary Orders [facility],Outside Imaging 30 [place] [address] System, Provider Not In, PhD Partners [address] [address] Social History Tobacco Use Types Packs/Day Years [...] Description 08/11/2025 10:15 AM EST Office Visit [facility] [address] [place] [address] 3rd Floor, [address] [place] [address] Jorge Wang MD 22 [facility], [address] [place] [address] documented as of this encounter Results * US Breast Outside (No Interpretation) (02/25/2013 12:05 AM EDT) Narrative SYSTEMGENERATED, DOCUMENTATION - 06/07/2021 3:52 PM EST This study is for PACS storage only and not for interpretation. us Provider Not In System PhD IMG OUTSIDE IMAGING W /OUT INTERPRETATION Final Result documented in this encounter Visit Diagnoses Not on filedocumented in this encounter Care Teams Sr. Pricing Analyst Relationship Specialty Start Date End Date Dario Melendez MD [address] [place] [phone] [email or web address] PCP - General Family Medicine 12/25/18 documented as of this encounter Additional Source Comments The information contained in this document represents components of the legal health record. It is not the complete legal health record.[facility]
--- OUTSIDE RECORDS SUMMARY | 2025-05-25 18:21 | XMS_ITS | Encounter Summary ---
Author Organization [facility] Address [address] [facility] [address] [place] [address] Phone Care Team Providers Care Neuropsychology Director Name Role Phone Dario Melendez MD Primary Care Prov ider Encounter Details Date Type Department Care Team (Late Contact Info) Description 06/07/2021 Ancillary Orders [facility],Outside Imaging 30 [place] [address] System, Provider Not In, PhD Partners [address] [address] Social History Tobacco Use Types Packs/Day Years [...] Description 08/11/2025 10:15 AM EST Office Visit [facility] [address] [place] [address] 3rd Floor, [address] [place] [address] Jorge Wang MD [address] [facility], [address] [place] [address] documented as of this encounter Visit Diagnoses Not on filedocumented in this encounter Care Teams Neuropsychology Director Relationship Specialty Start Date End Date Dario Melendez MD [address] [place] [phone] [email or web address] PCP - General Family Medicine 12/25/18 documented as of this encounter Additional Source Comments The information contained in this document represents components of the legal health record. It is not the complete legal health record.[facility]
--- OUTSIDE RECORDS SUMMARY | 2025-05-25 18:21 | XMS_ITS | Encounter Summary ---
Author Organization [facility] Address [address] [place] [address] Phone Care Team Providers Care Airplane Pilot Supervisor Name Role Phone Dario Melendez MD Primary Care Prov ider Reason for Referral * MRI/CAT Scan - Closed Specialty Diagnoses / Procedures Referred By Deuce ashford Referred To Contact Radiology Diagnoses Abnormal stress test Procedures NC Myocardial Perfusion Exercise Multiple [place] Zafar PA Phone: tel: fax: [email or web address] Referral ID Status Reason Start Date Expiration Date Visits Re quested Visits Authorized [id number] Closed 01/07/2019 03/08/2019 1 1 Encounter Details Date Type Department Care Team (Late st Contact Info) Description 12/27/2018 [facility] [address] [place] [address] 3rd Floor, [address] [place] [address] [place] Zafar PA [address] [place], [place] [phone] [email or web address] Abnormal stress test (Primary Dx) Social History Tobacco Use Types [...] Description 08/11/2025 10:15 AM EST Office Visit [facility] [address] [facility] 3rd Floor, [address] [place] [address] Jorge Wang MD [address] [facility], [address] [place] [address] [email or web address] documented as of this encounter Results * NC Myocardial Perfusion Exercise Multiple (01/16/2019 10:48 AM EDT) Nuc Stress EF 59 % LV Systolic Volume 37 mL LV Diastolic Volume 87 mL EF 55 % LV Systolic Volume Index 34 mL/m2 LV Diastolic Volume Index 82 mL/m2 Anatomical Region Laterality Modality Heart, Vascular Ultrasound Narrative 01/16/2019 3:47 PM EDT Normal study. There is no evidence of myocardial infarction or ischemia. Normal LV size and function with no regional wall motion abnormalities. Very low likelihood of hemodynamically significant coronary artery disease. Low risk study for myocardial events or cardiac in the next two years. Nuclear Study Quality TYPE OF STUDY: Myocardial Perfusion Imaging after exercise utilizing a standard Karl protocol with gated SPECT. PROTOCOL USED: One day stress protocol in the supine and prone position. Images were obtained in gated tomographic technique. Images were processed in SPECT format, reconstructed tomographically and compared [id number] in short axis, horizontal long axis and vertical long axis. DOSE: Technetium 99m Sestamibi 7.0 mCi injected intravenously at rest on 01/16/2019 with post injection scan time of 60 minutes. Technetium 99m Sestamibi 21.6 mCi injected intravenously during stress on 01/16/2019 with post injection scan time of 20 minutes. Overall image quality is good. Study was gated successfully. Perfusion Defect The lung to heart ratio is 0.30. Response to Stress BMI: 19.34 Pt exercised for 11:57 min on a KARL protocol achieving 13.4 METS. Test terminated due to fatigue. Baseline resting HR was 59. Max heart rate achieved was 171 (95% MPHR). 1. EKG - Baseline EKG showed normal sinus carina, nonspecific St T wave abn, PACs. During exercise, there were was slow upsloping in the inferior leads bu no EKG changes that are diagnostic of ischemia. 2. SYMPTOMS - no chest pain 3. EXERCISE PHYSIOLOGY - normal BP response to injection. Good functional capacity for age. 4. ARRHYTHMIAS - none Conclusion - normal stress test. Nuclear images pending and will be reported separately. See attached stress report for full details. Adrian Monet GROWTH HACKER . Perfusion Comments Stress LV cavity volume was 54 mL. Resting LV cavity volume was 55 mL. The stress/rest perfusion ratio is 0.98. There is no evidence of transient ischemic dilation (TID). The TID ratio was 1. Stress Function Comments Left ventricular function post-stress was normal. Post-stress ejection fraction was 59%. Stress end diastolic index: 82 mL/m2. Stress end systolic index: 34 mL/m2. Nuclear Prior Study There is no prior study available for comparison. Rest Function Comments Left ventricular function at rest was normal. Resting ejection fraction was 55%. Rest end diastolic index: 87 mL. Rest end systolic index: 37 mL. Perfusion Scoring Stress Summed Score: 0 Percent Normal: 0.00% The left ventricular perfusion is normal. Perfusion Scoring Resting Summed Score: 3 Percent Normal: 4.41% Moderate count reduction in the following segments: basal inferior. Mild count reduction in the following segments: basal inferolateral. All other segments are normal. Procedure Note Oumar Peralta MD / Dimitrios Barron MD, MPH - 01/16/2019 Normal study. There is no evidence of myocardial infarction or ischemia. Normal LV size and function with no regional wall motion abnormalities. Very low likelihood of hemodynamically significant coronary arterydisease. Low risk study for myocardial events or cardiac in the next twoyears. us [place] ROGERS CV NM CARDIAC F inal Result documented in this encounter Visit Diagnoses Diagnosis Abnormal stress test- Primary Other nonspecific abnormal cardiovascular system function study Abnormal stress test- Primary Other nonspecific abnormal cardiovascular system function study documented in this encounter Care Teams Airplane Pilot Supervisor Relationship Specialty Start Date End Date Dario Melendez MD [address] [place] [address] [phone] [email or web address] PCP - General Family Medicine 12/25/18 documented as of this encounter Additional Source Comments The information contained in this document represents components of the legal health record. It is not the complete legal health record.[facility]
--- OUTSIDE RECORDS SUMMARY | 2025-05-25 18:21 | XMS_ITS | Encounter Summary ---
Author Organization [facility] Address [address] [facility] [address] [place] [address] Phone Care Team Providers Care Trial Manager Name Role Phone Dario Melendez MD Primary Care Prov ider Encounter Details Date Type Department Care Team (Late st Contact Info) Description 06/07/2021 Ancillary Orders [facility],Outside Imaging 30 [place] [address] System, Provider Not In, PhD Partners [address] [address] Social History Tobacco Use Types Packs/Day Years [...] Description 08/11/2025 10:15 AM EST Office Visit [facility] [address] [place] [address] 3rd Floor, [address] [place] [address] Jorge Wang MD [address] [facility], [address] [place] [address] documented as of this encounter Results * Mammogram Outside (No Interpretation) (04/20/2015 12:00 AM EDT) Narrative SYSTEMGENERATED, DOCUMENTATION - 06/07/2021 3:53 PM EST This study is for PACS storage only and not for interpretation. us Provider Not In System PhD IMG OUTSIDE IMAGING W /OUT INTERPRETATION Final Result documented in this encounter Visit Diagnoses Not on filedocumented in this encounter Care Teams Trial Manager Relationship Specialty Start Date End Date Dario Melendez MD [address] [place] [address] [phone] [email or web address] PCP - General Family Medicine 12/25/18 documented as of this encounter Additional Source Comments The information contained in this document represents components of the legal health record. It is not the complete legal health record.[facility]
--- OUTSIDE RECORDS SUMMARY | 2025-05-25 18:21 | XMS_ITS | Encounter Summary ---
Author Organization [facility] Address [address] [facility] [address] [place] [address] Phone Care Team Providers Care Staff Sonographer Name Role Phone Dario Melendez MD Primary Care Prov ider Encounter Details Date Type Department Care Team (Late Contact Info) Description 06/07/2021 Ancillary Orders [facility],Outside Imaging 30 [place] [address] System, Provider Not In, PhD Partners [address] [address] Social History Tobacco Use Types Packs/Day Years [...] Description 08/11/2025 10:15 AM EST Office Visit [facility] [address] [place] [address] 3rd Floor, [address] [place] [address] Jorge Wang MD [address] [facility], [address] [place] [address] documented as of this encounter Results * US Breast Outside (No Interpretation) (04/28/2015 12:00 AM EST) Narrative SYSTEMGENERATED, DOCUMENTATION - 06/07/2021 3:56 PM EST This study is for PACS storage only and not for interpretation. us Provider Not In System PhD IMG OUTSIDE IMAGING W /OUT INTERPRETATION Final Result documented in this encounter Visit Diagnoses Not on filedocumented in this encounter Care Teams Staff Sonographer Relationship Specialty Start Date End Date Dario Melendez MD [address] [place] [phone] [email or web address] PCP - General Family Medicine 12/25/18 documented as of this encounter Additional Source Comments The information contained in this document represents components of the legal health record. It is not the complete legal health record.[facility]
--- OUTSIDE RECORDS SUMMARY | 2025-05-25 18:21 | XMS_ITS | Encounter Summary ---
Author Organization [facility] Address [address] [facility] [address] [place] [address] Phone Care Team Providers Care Purification Operator Helper Name Role Phone Dario Melendez MD Primary Care Prov ider Encounter Details Date Type Department Care Team (Late st Contact Info) Description 06/07/2021 Ancillary Orders [facility],Outside Imaging 30 [place] [address] System, Provider Not In, PhD Partners [address] [address] Social History Tobacco Use Types Packs/Day Years [...] Description 08/11/2025 10:15 AM EST Office Visit [facility] [address] [place] [address] 3rd Floor, [address] [place] [address] Jorge Wang MD [address] [facility], [address] [place] [address] documented as of this encounter Results * Mammogram Outside (No Interpretation) (04/28/2015 12:10 AM EST) Narrative SYSTEMGENERATED, DOCUMENTATION - 06/07/2021 3:59 PM EST This study is for PACS storage only and not for interpretation. us Provider Not In System PhD IMG OUTSIDE IMAGING W /OUT INTERPRETATION Final Result documented in this encounter Visit Diagnoses Not on filedocumented in this encounter Care Teams Purification Operator Helper Relationship Specialty Start Date End Date Dario Melendez MD [address] [place] [phone] [email or web address] PCP - General Family Medicine 12/25/18 documented as of this encounter Additional Source Comments The information contained in this document represents components of the legal health record. It is not the complete legal health record.[facility]
--- OUTSIDE RECORDS SUMMARY | 2025-05-25 18:21 | XMS_ITS | Encounter Summary ---
Author Organization [facility] Address [address] [facility] [address] [place] [address] Phone Care Team Providers Care Jig Hand Name Role Phone Dario Melendez MD Primary Care Prov ider Encounter Details Date Type Department Care Team (Late Contact Info) Description 06/07/2021 Ancillary Orders [facility],Outside Imaging 30 [place] [address] System, Provider Not In, PhD Partners [address] [address] Social History Tobacco Use Types Packs/Day Years [...] Description 08/11/2025 10:15 AM EST Office Visit [facility] [address] [place] [address] 3rd Floor, [address] [place] [address] Jorge Wang MD [address] [facility], [address] [place] [address] documented as of this encounter Results * US Breast Outside (No Interpretation) (08/10/2020 12:05 AM EST) Narrative SYSTEMGENERATED, DOCUMENTATION - 06/07/2021 1:53 PM EST This study is for PACS storage only and not for interpretation. us Provider Not In System PhD IMG OUTSIDE IMAGING W /OUT INTERPRETATION Final Result * Mammogram Outside (No Interpretation) (08/10/2020 12:00 AM EST) Narrative SYSTEMGENERATED, DOCUMENTATION - 06/07/2021 1:50 PM EST This study is for PACS storage only and not for interpretation. us Provider Not In System PhD IMG OUTSIDE IMAGING W /OUT INTERPRETATION Final Result documented in this encounter Visit Diagnoses Not on filedocumented in this encounter Care Teams Jig Hand Relationship Specialty Start Date End Date Dario Melendez MD [address] [place] [address] [phone] [email or web address] PCP - General Family Medicine 12/25/18 documented as of this encounter Additional Source Comments The information contained in this document represents components of the legal health record. It is not the complete legal health record.[facility]
--- OUTSIDE RECORDS SUMMARY | 2025-05-25 18:22 | XMS_ITS | Encounter Summary ---
Author Organization [facility] Address [address] [place] [phone] Phone Care Team Providers Care Zigzag Tunnel Elastic Operator Name Role Phone Dario Melendez MD Primary Care Prov ider Encounter Details Date Type Department Care Team (Late st Contact Info) Description 01/20/2024 Procedure Pass [facility], [address] [address] Social History Tobacco Use Types Packs/Day Years [...] on file 10/19/2022 No 10/19/2022 No 10/19/2022 Digital Access Answer Date Recorded No 11/20/2022 No 11/20/2022 Reliable internet access at home? Not on file 11/20/2022 Device with a working camera? Not on file Comments Unknown Sex and Gender Information Value Date Recorded Sex Assigned at Not on file Legal Sex Female 8:06 PM EST Gender Identity Not on file Sexual Orientation Not on file documented as of this encounter Plan of Treatment Upcoming Encounters Date Type Department Care Team (Late st Contact Info) Description 08/11/2025 10:15 AM EST Office Visit [facility] [address] [facility] 3rd Floor, [address] [place] [address] Jorge Wang MD [address] [facility], [address] [place] [address] [email or web address] documented as of this encounter Visit Diagnoses Not on filedocumented in this encounter Care Teams Zigzag Tunnel Elastic Operator Relationship Specialty Start Date End Date Dario Melendez MD [address] [place] [phone] [email or web address] PCP - General Family Medicine 12/25/18 documented as of this encounter Additional Source Comments The information contained in this document represents components of the legal health record. It is not the complete legal health record.[facility]
--- OUTSIDE RECORDS SUMMARY | 2025-05-25 18:22 | XMS_ITS | Encounter Summary ---
Author Organization [facility] Address [address] [place] [address] Phone Care Team Providers Care Adjunct Philosophy Faculty Name Role Phone Dario Melendez MD Primary Care Prov ider Encounter Details Date Type Department Care Team (Late st Contact Info) Description 12/23/2024 Procedure Pass [facility] [address] [place] [address] Social History Tobacco Use Types Packs/Day Years [...] Description 08/11/2025 10:15 AM EST Office Visit [facility] [address] [place] [address] 3rd Floor, [address] [place] [phone] Jorge Wang MD [address] [place] [phone] documented as of this encounter Visit Diagnoses Not on filedocumented in this encounter Care Teams Adjunct Philosophy Faculty Relationship Specialty Start Date End Date Dario Melendez MD [address] [place] [phone] [email or web address] PCP - General Family Medicine 7/3/19 documented as of this encounter Additional Source Comments The information contained in this document represents components of the legal health record. It is not the complete legal health record.[facility]
--- OUTSIDE RECORDS SUMMARY | 2025-05-25 18:22 | XMS_ITS | Clinical Summary ---
Author Organization [facility] Address [address] [place] [address] Phone Care Team Providers Care Unishear Operator Name Role Phone Dario Melendez MD Primary Care Prov ider Allergies Active Allergy Reactions Criticality Noted Date Comments Atomoxetine Dizziness,Nausea and/or Vomiting Medications norethindrone (MICRONOR) 0.35 mg tablet Take 1 tablet by mouth daily. Active hydrOXYzine HCL (ATARAX) 10 MG tablet Take 10 mg by mouth 2 (two) times a day. Active aspirin 325 MG tablet Take 325 mg by mouth daily. Active Bacillus coagulans-inulin 1 billion-250 cell-mg Cap Take 250 mg by mouth daily. Active albuterol 90 mcg/actuation inhaler Inhale 2 puffs into the lungs as needed for wheezing. 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 (Primary Dx) 04/01/2025 3:45 PM EDT Office Visit [facility] [address] [place] [address] Merritt Ibrahim CNP Subcutaneous mass of back (Primary Dx) from Last 3 Months Social History Tobacco Use Types Packs/Day Years Used Date Smoking Tobacco: Former Cigarettes Q uit: 2007 Smokeless Tobacco: Never Tobacco Cessation:Counseling Given: Not Answered Comments:Smoking History Packs/day: <=0.5 Alcohol Use Standard Drinks/Week Comments Yes [...] on file Sexual Orientation Not on file Last Filed Vital Signs Vital Sign Reading Time Taken Comments Blood Pressure 120/70 04/13/2025 2:08 PM EDT Pulse 86 04/13/2025 2:08 PM EDT Temperature 36.7 C (98 F) 04/13/2025 2:08 PM EDT Respiratory Rate 16 12/19/2024 2:54 PM EDT Oxygen Saturation 99% 04/13/2025 2:08 PM EDT Inhaled Oxygen Concentration - - Weight 54.4 kg (120 lb) 10/28/2023 11:44 AM EDT Height 162.6 cm (5' 4 ) 10/28/2023 11:44 AM EDT Body Mass Index 20.6 10/28/2023 11:44 AM EDT Plan of Treatment Upcoming Encounters Date Type Department Care Team (Late st Contact Info) Description 08/11/2025 10:15 AM EST Office Visit [facility] [address] [place] [address] 3rd Floor, [address] [place] [address] Jorge Wang MD [address] [facility], [address] [place] [phone] [email or web address] Health Maintenance Due Date Last Done Comments LIPID PANEL 1978 DEPRESSION SCREENING 1990 HEPATITIS C SCREENING 1996 HIV ONE-TIME SCREENING (18-65 YEARS) 1996 COLOGUARD 2023 FIT TEST 2023 FOBT 2023 SIGMOIDOSCOPY 2023 VIRTUAL COLONOSCOPY 2023 INFLUENZA VACCINE (#1) 2025 , 04/14/2022, 03/31/2021, Additional history exists COVID-19 VACCINE ( season) 2025 06/09/2023, 04/14/2022, 04/20/2021, Additional history exists SMOKING Hx and SMOKELESS TOBACCO SCREENING 04/13/2026 04/13/2025 MAMMOGRAM 11/21/2026 11/21/2024, 07/26, 08/10/2020, Additional history exists PAP SMEAR 09/19/2027 09/18/2024, 05/13/2020 Adult Td,Tdap Booster 09/01/2029 09/02/2019 COLONOSCOPY 05/10/2030 05/10/2020 COLORECTAL CANCER SCREENING 05/10/2030 HEPATITIS A VACCINES Aged Out No long er eligible based on patient's age to complete this topic HIB VACCINES Aged Out No longer eligi ble based on patient's age to complete this topic MENINGOCOCCAL VACCINES (ACWY) Aged Out No longer eligible based on patient's age to complete this topic MENINGOCOCCAL VACCINES (B) Aged Out N o longer eligible based on patient's age to complete this topic PNEUMOCOCCAL VACCINES (0-49 years) Aged Out No longer eligible based on patient's age to complete this topic Medical Devices Implanted Type Area Furniture Shampooer Device Identifier Shelf Expiration Date Model / Serial / Lot Marker Ultraclip 17ga 10cm Tissue Dual Trigger Breast Ti Shiloh Shape Bx/5ea - [id number] Implanted:Qty: 1 on 07/01/2021 by Beck Inman MD at [facility] Right: Breast [employer] [id number] / / Procedures Procedure Name Priority Date/Time Associated Diagnosis Comments BIOPSY Routine 04/13/2025 2:56 PM EDT Benign lipomatous neoplasm of skin and subcutaneous tissue of other sites ANATOMIC PATHOLOGY Routine 04/13/2025 12 :00 AM EDT BI MRI BREAST WITH AND WITHOUT CONTRAST (BILATERAL) Routine 11/21/2024 12:56 PM EDT Other specified personal risk factors, not elsewhere classified PAP TEST Routine 09/18/2024 12:00 AM EDT ENDOSCOPY, COLON 05/10/2020 1:35 PM EST from Last 3 Months or Most Recently Relevant to Health Maintenance Results * Excisional Biopsy (04/13/2025 2:56 PM EDT) Other Narrative Merritt Ibrahim CNP - 04/13/2025 2:56 PM EDT Merritt Ibrahim CNP 04/13/2025 3:15 PM PROCEDURE: Excisional Biopsy Date/Time: 04/13/2025 2:56 PM Performed by: Merritt Ibrahim CNP Authorized by: Merritt Ibrahim CNP [place] Protocol: Verbal consent obtained: Yes Written consent obtained: Yes Time out: Immediately prior to the procedure, a time out was called to verify that there is a signed consent form and that the correct patient, planned procedure, site and side are consistent with documentation and that necessary equipment and/or blood products are available prior to the start of the case. Preparation: Preparation: Patient was prepped and draped in usual sterile fashion Estimated blood loss: less than 10cc Procedure Details: Specimens collected: tissue Anesthesia: Local anesthesia used?: Yes Local anesthetic: Lidocaine 1% with epinephrine, 10cc or less Sedation: Patient sedated?: No Post-procedure: Patient tolerance: patient tolerated the procedure well with no immediate complications Comments: 4 cm incision and removal of lipomatous mass in entirety, placed in formalin and sent to pathology. Wound hemostatic, layered closure with Vicryl, skin closure with Monocryl, steri strips, waterproof dsd applied. Merritt Ibrahim CNP PROCEDURE/MINOR SURGICAL ORDE EDEL Final Result * Anatomic Pathology (04/13/2025 12:00 AM EDT) 04/13/2025 04/14/2025 8:3 7 AM EDT Narrative SEE NARRATIVE - 04/15/2025 12:19 PM EDT [address] [address] Diesel Mechanic Helper: Beto Estrella MD Surgical Pathology Report FINAL PATHOLOGIC DIAGNOSIS: SOFT TISSUE, BACK, EXCISION: Lipoma fragments. Electronically Signed Out By Beto Estrella MD By his/her signature above, the pathologist listed as making the Final Diagnosis certifies that he/she has personally reviewed this case and confirmed or corrected the diagnosis. 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 Orthopaedic General sections are submitted in a single cassette labeled A1. Grossed by: VALENTINA Truong, PA(ASC) [id number] 04/14/2025 Grossing Staff: [id number] Patient Name: MARIELY MCINTYRE : 1980 (Age: 44) Sex: F Institution: [facility] Location: [facility] Date of Operation: 04/13/2025 Date of Reported: 04/15/2025 12:19 Results To: Merritt Ibrahim MS, BS Dario Cho MD, BS Merritt Ibrahim [facility] PATHOLOGY ORDERABLES Ca singer Result SEE NARRATIVE * BI MRI BREAST WITH AND WITHOUT CONTRAST (BILATERAL) (11/21/2024 12:56 PM EDT) Anatomical Region Laterality Modality Breast Left, Breast Right, Breast Bilateral Bila teral Magnetic Resonance 11/21/2024 2:06 PM EDT Impressions 11/21/2024 2:31 PM EDT Bilateral enhancing (progressive-type) masses with benign imaging features, the largest masses in the right breast at 3:00 position, posterior depth, previously proven benign by core biopsy. No MR evidence of malignancy. Recommend high risk bilateral breast MRI screening in 1 year. BI-RADS 2 BENIGN Please note that mammography offers complementary information to MRI and certain findings may be visible primarily on mammography. The patient should keep all scheduled mammography appointments and continue annual screening mammography. Narrative 11/21/2024 2:31 PM EDT BI MRI BREAST WITH AND WITHOUT CONTRAST (BILATERAL) Additional patient information: Elevated lifetime risk of developing breast cancer, family history (mother). History of bilateral breast benign biopsy, right breast, 3:00, uncertain of left breast location. High risk screening. TECHNIQUE: MR imaging of the breasts was performed using T1, T2 and fat- saturated techniques. Dynamic multiphase imaging was also performed after the uneventful administration of 11 mL intravenous gadolinium contrast agent. Computer generated 3D reconstruction and enhancement kinetic analysis was utilized by the radiologist in the interpretation of this examination. COMPARISON: Comparison is made with relevant prior imaging, prior mammograms and ultrasound. Breast composition: Extreme fibroglandular tissue. Background parenchymal enhancement: Moderate. FINDINGS: Right In the 3:00 position, posterior depth, 6 cm from the nipple there is a T2 markedly hyperintense, oval, clip containing, enhancing (progressive-type) mass measuring 2.2 cm, this correlates to biopsy proven benign mass and appears overall unchanged in size. There is no other suspicious enhancing mass, duct dilatation or ductal type enhancement. No skin thickening or nipple retraction is seen. There is no axillary or internal mammary lymphadenopathy on the right. Left There are 2, similar-appearing, T2 hyperintense, enhancing (progressive-type) masses present. In the 8:00 position, 1.5 cm from the nipple and at an anterior depth, an oval, circumscribed mass measures 1.3 cm and in the 12:00 position/retroareolar plane, posterior depth an oval, circumscribed enhancing mass measures 0.9 cm. The more anteriorly positioned mass in the 8:00 location has a mammographic correlate on prior mammogram of July 2023 which appears stable in size. The MR features of the 2 discrete masses in the left breast are similar to the biopsy-proven benign lesion on the right and are considered benign in etiology. There are a few scattered enhancing foci and scattered nonenhancing cysts also present. There is no dominant suspicious enhancing mass, duct dilatation or ductal type enhancement. There is no axillary or internal mammary lymphadenopathy on the left. Other No incidental or abnormal findings. Procedure Note Bety Means MD - 11/21/2024 BI MRI BREAST WITH AND WITHOUT CONTRAST (BILATERAL) Additional patient information: Elevated lifetime risk of developingbreast cancer, family history (mother). History of bilateral breast benignbiopsy, right breast, 3:00, uncertain of left breast location. High riskscreening. TECHNIQUE: MR imaging of the breasts was performed using T1, T2 andfat-saturated techniques. Dynamic multiphase imaging was also performedafter the uneventful administration of 11 mL intravenous gadoliniumcontrast agent. Computer generated 3D reconstruction and enhancementkinetic analysis was utilized by the radiologist in the interpretation ofthis examination. COMPARISON: Comparison is made with relevant prior imaging, priormammograms and ultrasound. Breast composition: Extreme fibroglandular tissue. Background parenchymal enhancement: Moderate. FINDINGS: Right In the 3:00 position, posterior depth, 6 cm from the nipple there is a [id number] hyperintense, oval, clip containing, enhancing (progressive-type)mass measuring 2.2 cm, this correlates to biopsy proven benign mass andappears overall unchanged in size. There is no other suspicious enhancingmass, duct dilatation or ductal type enhancement. No skin thickening ornipple retraction is seen. There is no axillary or internal mammarylymphadenopathy on the right. Left There are 2, similar-appearing, T2 hyperintense, enhancing(progressive-type) masses present. In the 8:00 position, 1.5 cm from thenipple and at an anterior depth, an oval, circumscribed mass measures 1.3cm and in the 12:00 position/retroareolar plane, posterior depth an oval,circumscribed enhancing mass measures 0.9 cm. The more anteriorlypositioned mass in the 8:00 location has a mammographic correlate on priormammogram of July 2023 which appears stable in size. The MR featuresof the 2 discrete masses in the left breast are similar to thebiopsy-proven benign lesion on the right and are considered benign inetiology. There are a few scattered enhancing foci and scatterednonenhancing cysts also present. There is no dominant suspicious enhancingmass, duct dilatation or ductal type enhancement. There is no axillary or internal mammary lymphadenopathy on the left. Other No incidental or abnormal findings. IMPRESSION: Bilateral enhancing (progressive-type) masses with benign imagingfeatures, the largest masses in the right breast at 3:00 position,posterior depth, previously proven benign by core biopsy. No MR evidenceof malignancy. Recommend high risk bilateral breast MRI screening in 1 year. BI-RADS 2 BENIGN Please note that mammography offers complementary information to MRI andcertain findings may be visible primarily on mammography. The patientshould keep all scheduled mammography appointments and continue annualscreening mammography. Dario Cho MD IMG MR BREAST Fi nal Result * Pap Test (09/18/2024 12:00 AM EDT) Report [address] [address] Diesel Mechanic Helper: Beto Estrella MD POWER AND RECOVERY SUPERVISOR Cytology Report FINAL DIAGNOSIS A. PAP SMEAR (THIN PREP) CE: SPECIMEN ADEQUACY: Satisfactory for evaluation; transformation zone present. INTERPRETATION: NEGATIVE FOR INTRAEPITHELIAL LESION OR MALIGNANCY. This specimen was analyzed by the automated ThinPrep Imaging System ([employer] and the selected zamudio were reviewed by a automotive software engineer. Electronically Signed Out By: DILLON Garner(ASCP) The Pap test is a screening test primarily for squamous cancers and precursors and has associated false-negative and false-positive results. New technologies such as liquid-based preparations may decrease but will not eliminate all false-negative results. Regular sampling and follow-up of unexplained clinical signs and symptoms are recommended to minimize false negative results. CLINICAL HISTORY Date of Last Menstrual Period: 08-25-2024 Contraceptive History: OCPs: NORETHINDRONE Other Clinical Conditions: Screening Pap SPECIMEN SOURCE A: PAP SMEAR (THIN PREP) CE Patient Name: MARIELY MCINTYRE : 1980 (Age: 44) Sex: F Institution: [facility] Location: [facility] Date of Collection: 09/18/2024 Date of Reported: 09/24/2024 15:02 Results to: Dario Cho [facility] Final Diagnosis A. PAP SMEAR (THIN PREP) CE: SPECIMEN ADEQUACY: Satisfactory for evaluation; transformation zone present. INTERPRETATION: NEGATIVE FOR INTRAEPITHELIAL LESION OR MALIGNANCY. This specimen was analyzed by the automated ThinPrep Imaging System ([employer] and the selected zamudio were reviewed by a automotive software engineer. [facility] Conversion Type (Conversion Source) 09/18/2024 09/22/2024 10:21 AM EDT us Dario Cho MD CYTOLOGY ORDERABLE S Edited Result - Final [address] [address] * ENDOSCOPY, COLON (05/10/2020 1:35 PM EST) Narrative Transcriptions Kandace Poole MD - 05/10/2020 1:35 PM EST Patient Name: Mariely Cameron Attending MD:: KANDACE POOLE MD Procedure Date: 05/10/2020 1:35 PM Date of : 1980 Age: 39 Admit Type: Outpatient Gender: Female Room: [place] [address] Referring MD: Dario Cho MD Exam Type: Colonoscopy Indications: This is the patient's first colonoscopy, Abdominalpain in the left lower quadrant, Change in bowel habits, Fecal incontinence Medications: Monitored Anesthesia Care Procedure: Informed consent was obtained from the patient after discussion of the indications, limitations, alternatives, benefits, and risks of the procedure. Risks specifically discussed include but are not limited to medication reactions, missed lesions, bleeding, perforation, or the need for emergentsurgery. Throughout the procedure, the patient's bloodpressure, pulse, end-tidal CO2, and oxygen saturations were monitored continuously. The Olympus pediatric variable colonoscopePCF-[id number] #2 was introduced through the anus and advanced tothe terminal ileum, with identification of theappendiceal orifice and IC valve. The colonoscopy was somewhat difficult. Successful completion of the procedurewas aided by applying abdominal pressure. The patient tolerated the procedure fairly well. The quality ofthe bowel preparation was excellent. Complications: No immediate complications. Estimated blood loss:None. Findings: The perianal and digital rectal examinations were normal. Pertinent negatives include normal sphincter tone. The terminal ileum appeared normal. The entire examined colon appeared normal on directand retroflexion views. Retroflexion in the right colon was performed. Impression: - The examined portion of the ileum was normal. - The entire examined colon is normal on direct and retroflexion views. - No specimens collected. - Irritable bowel syndrome, suspected. Recommendation: - Reassurance - Repeat colonoscopy in 10 years for screeningpurposes. - Trial of Low FODMAP diet. - Colace capsule(s) orally 100 mg 1-2 daily. KANDACE POOLE MD 05/10/2020 2:19:53 PM This report has been signed electronically. Number of Addenda: 0 Note Initiated On: 05/10/2020 1:35 PM Procedure Code(s): --- Professional --- 92493, Colonoscopy, flexible; diagnostic, including collection of specimen(s) by brushing or washing, when performed (separateprocedure) --- Technical --- 11421, Colonoscopy, flexible; diagnostic, including collection of specimen(s) by brushing or washing, when performed (separateprocedure) Diagnosis Code(s): --- Professional --- K58.9, Irritable bowel syndrome without diarrhea R10.32, Left lower quadrant pain R19.4, Change in bowel habit R15.9, Full incontinence of feces --- Technical --- K58.9, Irritable bowel syndrome without diarrhea R10.32, Left lower quadrant pain R19.4, Change in bowel habit R15.9, Full incontinence of feces CPT copyright 2018 [employer]. All rights reserved. The codes documented in this report are preliminary and upon residential leasing manager reviewmay be revised to meet current compliance requirements. Procedure Date: 05/10/2020 1:35:31 PM [address] [place] [id number] Dario Cho MD GI PROCEDURE ORDER JASON Final Result from Last 3 Months or Most Recently Relevant to Health Maintenance Insurance O O [address] [place], [place] [address]O O Member Subscriber Plan / Payer (Ef fective 2017-Present) Name:Mariely Mcintyre Relation to Subscriber:Spouse Name:MARTA MCINTYRE Date of :1900 (Home) Address: [address] [place] [address] Payer ID:Not on file Type:HMO Address: [place] [id number] [place] [facility] [place] Address: [address] [address] Care Teams Unishear Operator Relationship Specialty Start Date End Date Dario Melendez MD [address] [place] [phone] [email or web address] PCP - General Family Medicine 12/25/18 Additional Source Comments The information contained in this document represents components of the legal health record. It is not the complete legal health record.[facility]
--- OUTSIDE RECORDS SUMMARY | 2025-05-25 18:22 | XMS_ITS | Encounter Summary ---
Author Organization [facility] Address [address] [facility] [address] [place] [phone] Phone Care Team Providers Care Line Servicer Name Role Phone Dario Melendez MD Primary Care Prov ider Reason for Referral * MRI/CAT Scan - Closed Specialty Diagnoses / Procedures Referred By Contac t Referred To Contact Radiology Diagnoses Abnormal result of other cardiovascular function study Procedures NC Myocardial Perfusion Pharmacologic Stress Multiple CHG MYOCARDIAL SPECT MULTIPLE STUDIES Diana Ha NP [address] [place] [address] Phone: tel: fax: mailto:[email or web address] Referral ID Status Reason Start Date Expiration Date Visits Re quested Visits Authorized [id number] Closed 12/23/2024 02/21/2025 4 4 Encounter Details Date Type Department Care Team (Late st Contact Info) Description 12/23/2024 Transcribe Orders Virtual Department [address] [place] [address] Diana Ha NP [address] [place] [address] [email or web address] Abnormal result of other cardiovascular function study (Primary Dx) Social History Tobacco Use Types [...] Description 08/11/2025 10:15 AM EST Office Visit [facility] [address] [facility] 3rd Floor, [address] [place] [address] Jorge Wang MD [address] [facility], [address] [place] [address] [email or web address] documented as of this encounter Results * NC Myocardial Perfusion Pharmacologic Stress Multiple (01/06/2025 11:21 AM EDT) Anatomical Region Laterality Modality Heart, Vascular Nuclear Medicine 01/06/2025 4:45 PM EDT Impressions 01/06/2025 4:55 PM EDT Left ventricular ejection fraction: 80% Myocardial perfusion images demonstrate no evidence of ischemia or infarction. Narrative 01/06/2025 4:55 PM EDT EXAM: NC MYOCARDIAL PERFUSION PHARMACOLOGIC STRESS MULTIPLE CLINICAL INDICATION: Outside Radiology Order; abnormal stress test. TECHNIQUE: According to standard departmental protocol, the patient was injected with 10.6 mCi of TC-99M Sestamibi IV at rest and ungated SPECT myocardial images were obtained. Subsequently, a stress test was performed and 35.4 mCi of TC-99M Sestamibi was injected at peak stress. After 30 to 60 minutes, gated SPECT images were obtained and assessed for myocardial perfusion and left ventricular function. Stress EKG findings were interpreted by cardiology and are reported separately. Please refer to that report in Epic. COMPARISON: None. FINDINGS: PERFUSION: Myocardial perfusion images show no evidence of scar or ischemia. VENTRICULAR SIZE AND FUNCTION: Left ventricular ejection fraction within normal limits. Left ventricular size within normal limits. LV EF: 80% TID Ratio: 1.14 IMAGE QUALITY: Adequate Procedure Note Louise Moon MD - 01/06/2025 EXAM: NC MYOCARDIAL PERFUSION PHARMACOLOGIC STRESS MULTIPLE CLINICAL INDICATION: Outside Radiology Order; abnormal stress test. TECHNIQUE: According to standard departmental protocol, the patient wasinjected with 10.6 mCi of TC-99M Sestamibi IV at rest and ungated SPECTmyocardial images were obtained. Subsequently, a stress test was performedand 35.4 mCi of TC-99M Sestamibi was injected at peak stress. After 30 to60 minutes, gated SPECT images were obtained and assessed for myocardialperfusion and left ventricular function. Stress EKG findings were interpreted by cardiology and are reportedseparately. Please refer to that report in Epic. COMPARISON: None. FINDINGS: PERFUSION: Myocardial perfusion images show no evidence of scar orischemia. VENTRICULAR SIZE AND FUNCTION: Left ventricular ejection fraction withinnormal limits. Left ventricular size within normal limits. LV EF: 80% TID Ratio: 1.14 IMAGE QUALITY: Adequate IMPRESSION: Left ventricular ejection fraction: 80% Myocardial perfusion images demonstrate no evidence of ischemia orinfarction. Diana Ha ADVERTISING SOLICITOR CV NM CARDIAC Final R esult documented in this encounter Visit Diagnoses Diagnosis Abnormal result of other cardiovascular function study- Primary Abnormal result of other cardiovascular function study documented in this encounter Care Teams Line Servicer Relationship Specialty Start Date End Date Dario Melendez MD [address] [place] [phone] [email or web address] PCP - General Family Medicine 12/25/18 documented as of this encounter Additional Source Comments The information contained in this document represents components of the legal health record. It is not the complete legal health record.[facility]
--- OUTSIDE RECORDS SUMMARY | 2025-05-25 18:22 | XMS_ITS | Encounter Summary ---
Author Organization [facility] Address [address] [place] [address] [place] [address] Phone Care Team Providers Care Crystal Calibrator Name Role Phone Dario Melendez MD Primary Care Prov ider Reason for Referral * Outpatient Procedure - Closed Specialty Diagnoses / Procedures Referred By Deuce ashford Referred To Contact Diagnoses Angina pectoris, unspecified Chest pain, unspecified type Procedures Adult Echo TTE Dario Melendez MD [address] [place] [address] Phone: tel: fax: mailto:[email or web address] Referral ID Status Reason Start Date Expiration Date Visits Re quested Visits Authorized [id number] Closed 12/23/2024 12/23/2025 1 1 Encounter Details Date Type Department Care Team (Late st Contact Info) Description 12/23/2024 Transcribe Orders Virtual Department [address] [place] [address] Dario Melendez MD [address] [place] [phone] [email or web address] Angina pectoris, unspecified (Primary Dx); Chest pain, unspecified type Social History Tobacco Use Types Packs/Day Years [...] Description 08/11/2025 10:15 AM EST Office Visit [facility] [address] [facility] 3rd Floor, [address] [place] [address] Jorge Wang MD 22 [facility], [address] [place] [address] documented as of this encounter Results * TTE COMPREHENSIVE (12/31/2024 10:59 AM EDT) Body Surface Area 1.57 m2 Height 163 cm Weight 54 kg Systolic BP 127 mmHg Diastolic BP 86 mmHg Interventricular Septum Thickness 7 6 - 11 mm Left Ventricle Internal Diameter End Diastole 39 37 - 52 mm Left Ventricle Internal Diameter End Systole 25 <35 mm Left Ventricular Outflow Tract Diameter 20.0 mm LVOT VTI REST 235.0 mm Left Ventricular Outflow Tract Velocity 1.1 m/s Left Ventricular Outflow Tract Gradient at Rest 4 mmHg Left Ventricular Posterior Wall Thickness 8 6 - 11 mm Left Ventricle Ea Lateral Wave Speed 14.4 cm/s Left Ventricle Ea Septal Wave Speed 8.8 cm/s Ejection Fraction 65 50 - 75 Percent Aortic Valve Mean Gradient 4 mmHg Aortic Valve Time Velocity Integral 316.0 mm Aortic Valve Peak Velocity 1.4 m/s Aortic Valve Peak Gradient 8 mmHg Aortic Valve Peak Gradient 8 mmHg Aortic Sinus Diameter 30 <40 mm Inferior Vena Cava Diameter 11 <21 mm Mitral Valve Deceleration Time 194 ms Left Ventricle A Wave Speed 53.8 cm/s Left Ventricle E Wave Speed 109.0 cm/s Pulmonary Valve Peak Velocity 0.8 m/s Pulmonary Valve Peak Gradient 2 mmHg Right Ventricle Basal Diameter 28 25 - 41 mm Raw LV EF% 59 % MV E/E' Tissue Velocity Lateral 7.57 Relative Wall Thickness 0.41 0.22 - 0.42 Left Ventricle indexed to BSA 52.4 g/m2 MV E/A ratio 2.0 MV E/e' septal 12.39 Left Ventricle E/e' Average 10.0 Aortic Valve Prosthetic Mean Gradient 4 mmHg Aortic Valve Sinus Index by BSA 19 mm/m2 Aorta Sinus Index by Height 1.84 cm/m Aorta Sinus CSA index by Height 4.33 cm2/m Pulmonic Valve Prosthetic Peak Gradient 2 mmHg MGB CV AV DIMENSIONLESS INDEX (PEAK) - STRESS ECHO DOBUT - REST 0.79 Aortic Sinus Index 19 mm Aortic Valve Sinus Index 1 19 19 - 27 mm Echo E/Ea 12.39 Left Atrial Volume Index 13 16 - 34 mL/m2 Right Ventricle TAPSE 25 >=17 mm Right Ventricle Pulse Doppler S Wave 13.0 >=9.5 cm/s Left Atrial Volume 20 mL Left Atrial Volume Index by Height 12 mL/m Anatomical Region Laterality Modality Heart Ultrasound Narrative 01/01/2025 9:21 AM EDT Images from the original result were not included. Normal LV size and function EF 60 to 65%. Normal diastolic function. Normal RV size and function. No significant valvular heart disease is seen. Left Ventricle The left ventricle is normal in size. There is normal left ventricular systolic function. The LV ejection fraction is 65% (calculated via the single plane method of discs). There are no wall motion abnormalities. LV diastolic function appears within normal limits for age. The E/A ratio is 2.0. The e' septal wave velocity is 8.8 cm/s. The e' lateral wave velocity is 14.4 cm/s. The average E/e' ratio is 10.0. Right Ventricle The right ventricle is normal in size. The RV basal dimension is 28 mm. There is normal right ventricular systolic function. TAPSE is 25 mm. RV S' wave is 13.0 cm/s. Left Atrium The left atrium is normal in size. The left atrial volume index by BSA is 13 mL/m2. Right Atrium The right atrium is normal in size. The IVC is normal in size with normal inspiratory collapse. The IVC diameter is 11 mm. Mitral Valve The mitral valve appears normal. There is no mitral stenosis. There is no mitral regurgitation. Tricuspid Valve The tricuspid valve appears normal. There is no tricuspid stenosis. There is trace tricuspid regurgitation. RV systolic pressure could not be estimated due to insufficient TR Doppler envelope. Aortic Valve The aortic valve is tricuspid. There is no aortic stenosis. There is no aortic regurgitation. The visualized portions of the thoracic aorta appear normal in size. Pulmonic Valve The pulmonic valve appears normal. There is no pulmonic stenosis. There is trace pulmonic regurgitation. Pericardium The pericardium appears normal. General Findings The image quality was fair (3). Technique(s) used in the evaluation: Color flow Doppler and Spectral Doppler. The predominant rhythm during the study was sinus. Comparison Findings There are no prior studies for comparison. IAS/IVS The interatrial septum appears normal. There is no evidence of patent foramen ovale (PFO). Dario Cho MD CV ECHO ORDERABLES Final Result documented in this encounter Visit Diagnoses Diagnosis Angina pectoris, unspecified- Primary Chest pain, unspecified type Angina pectoris, unspecified Chest pain, unspecified type documented in this encounter Care Teams Crystal Calibrator Relationship Specialty Start Date End Date Dario Melendez MD [address] [place] [phone] [email or web address] PCP - General Family Medicine 12/25/18 documented as of this encounter Additional Source Comments The information contained in this document represents components of the legal health record. It is not the complete legal health record.[facility]
--- OUTSIDE RECORDS SUMMARY | 2025-05-25 18:22 | XMS_ITS | Encounter Summary ---
Author Organization [facility] Address [address] [facility] [address] [place] [phone] Phone Care Team Providers Care Admissions Clerk Name Role Phone Dario Melendez MD Primary Care Prov ider Reason for Referral * MRI/CAT Scan - Closed Specialty Diagnoses / Procedures Referred By Contac t Referred To Contact Radiology Diagnoses Abnormal result of other cardiovascular function study Procedures NC Stress Result for Nuclear Stress Test Diana Ha NP [address] [place] [address] Phone: tel: fax: mailto:[email or web address] Referral ID Status Reason Start Date Expiration Date Visits Re quested Visits Authorized [id number] Closed 01/06/2025 01/06/2026 1 1 Encounter Details Date Type Department Care Team (Late st Contact Info) Description 01/06/2025 Ancillary Orders Virtual Department [address] [place] [address] Diana Ha NP [address] [place] [address] [email or web address] Abnormal result of other cardiovascular function study [...] your housing situation today? I have colby lucia 12/19/2024 How many times have you move [...] Description 08/11/2025 10:15 AM EST Office Visit [facility] 22 [facility] 3rd Floor, [address] [place] [address] Jorge Wang MD [address] [facility], [address] [place] [address] documented as of this encounter Results * NC Stress Result for Nuclear Stress Test (01/06/2025 10:54 AM EDT) Max Predicted Heart Rate 174 bpm [facility] Max BP Systolic 140 mmHg [facility] Max BP Diastolic 80 mmHg [facility] Max HR 153 BPM [facility] Resting HR 70 BPM [facility] Resting BP Systolic 106 mmHg [facility] Resting BP Diastolic 80 mmHg [facility] Peak METS 10.1 METS [facility] Peak HR 151 BPM [facility] Peak BP Systolic 140 mmHg [facility] Peak BP Diastolic 80 mmHg [facility] Anatomical Region Laterality Modality Heart Other 01/06/2025 9:31 AM EDT 01/06/2025 10:01 AM EDT Narrative 01/06/2025 11:23 AM EDT Impression: The ECG portion of the stress test was suspicious for ischemia at adequate workload on the Karl protocol. Nuclear images will be reported separately. Stress Findings The resting heart rate was 70 BPM. The resting BP was 106/80 mmHg. A peak heart rate of 151 BPM was achieved. Peak BP was 140/80 mmHg. ECG REPORT- Pt exercised for 8:36 min on a KARL protocol achieving 10.1 METS. Test terminated due to fatigue. Baseline resting HR was 70 bpm. Max heart rate achieved was 153 bpm (87% MPHR). 1. EKG - Baseline EKG showed sinus rhythm with PACs. During exercise there were up to 2 mm horizontal to upsloping ST depressions in the inferolateral leads and V3 V 6. 2. SYMPTOMS -No chest pain reported. 3. EXERCISE PHYSIOLOGY -Good functional capacity for age. BP 102/80 at rest, BP 140/80 during exercise, BP 122/70 on discharge from stress lab. 4. ARRHYTHMIAS -Rare isolated PAC Conclusion -Abnormal EKG portion of stress test with EKG changes suggestive for ischemia. There were no reported symptoms concerning for angina. Nuclear images pending and will be reported separately. Christa Camacho NP with Dr. Guzman Response to Stress The patient exercised for minutes and seconds, achieving 10.1 METS at peak exercise. Baseline blood pressure was 106/80 mmHg, and baseline heart rate was 70 bpm. Peak blood pressure was 140/80 mmHg. The patient achieved a peak heart rate of 151 bpm, which is% of their maximum predicted heart rate. Rate pressure product was [id number]. us Diana Ha NP CV NM CARDIAC Final R esult documented in this encounter Visit Diagnoses Diagnosis Abnormal result of other cardiovascular function study- Primary Abnormal result of other cardiovascular function study documented in this encounter Care Teams Admissions Clerk Relationship Specialty Start Date End Date Dario Melendez MD [address] [place] [phone] [email or web address] PCP - General Family Medicine 12/25/18 documented as of this encounter Additional Source Comments The information contained in this document represents components of the legal health record. It is not the complete legal health record.[facility]
--- OUTSIDE RECORDS SUMMARY | 2025-05-25 18:22 | XMS_ITS | Encounter Summary ---
Author Organization [facility] Address [address] [facility] [address] [place] [address] Phone Care Team Providers Care Snow Removing Supervisor Name Role Phone Dario Melendez MD Primary Care Prov ider Encounter Details Date Type Department Care Team (Latest Contact Info) Description 04/01/2020 Transcribe Orders [facility] [address] [place] [address] Lauryn Elias, PASSENGER SERVICE REPRESENTATIVE [address] [place] [address] [email or web address] Constipation, unspecified constipation type (Primary Dx); Anal or rectal pain; Abdominal pain, left lower quadrant; Change in bowel habits Social History Tobacco Use Types Packs/Day Years Used Date Smoking Tobacco: Former Smokeless Tobacco: Never Comments:Smoking History Pac ks/day: [...] Description 08/11/2025 10:15 AM EST Office Visit [facility] [address] [place] [address] 3rd Floor, [address] [place] [address] Jorge Wang MD [address] [place] [address], [address] [place] [address] documented as of this encounter Results * TSH (04/01/2020 3:07 PM EDT) [facility] TSH 2.46 0.27 - 4.20 uIU/mL [facility] Blood 04/01/2020 3:07 PM EDT 04/01/2020 3:13 PM EDT Lauryn Elias [facility] BLOOD BKR ORDERABLES F inal Result [address] [address] * C-Reactive Protein (04/01/2020 3:07 PM EDT) [facility] C REACTIVE PROTEIN 1.0 0.0 - 4.0 mg/L [facility] Blood 04/01/2020 3:07 PM EDT 04/01/2020 3:13 PM EDT Lauryn Elias [facility] BLO[facility] BKR ORDERABLES F inal Result [address] [address] * (ABNORMAL) Comprehensive metabolic panel (04/01/2020 3:07 PM EDT) [facility] SODIUM 140 133 - 146 mmol/L [facility] POTASSIUM 4.2 3.3 - 5.1 mmol/L [facility] CHLORIDE 103 96 - 108 mmol/L [facility] CO2 25 21 - 35 mmol/L [facility] BUN 16 6 - 19 mg/dL [facility] CREATININE 0.80 0.5 - 1.5 mg/dL [facility] GLUCOSE 92 70 - 99 mg/dL [facility] ALBUMIN 5.1(H) 3.9 - 4.8 g/dL [facility] TOTAL PROTEIN 8.1(H) 6.5 - 8.0 g/dL [facility] CALCIUM 10.0 8.4 - 10.3 mg/dL [facility] ALKALINE PHOSPHATASE 54 39 - 117 U/L [facility] TOTAL BILIRUBIN 0.2 0.0 - 1.2 mg/dL [facility] AST 19 0 - 37 U/L [facility] ALT 10 0 - 40 U/L [facility] GLOBULIN 3.0 1 - 4.8 g/dL [facility] EGFR 92 >59 mL/min/1.7 3m2 [facility] Comment:Estimated glomerular filtration rate calculated using the CKD-EPI equation. ANION GAP 16 10 - 20 mmol/L [facility] Blood 04/01/2020 3:07 PM EDT 04/01/2020 3:13 PM EDT us Laurynterrell Gardnerrenny Elias PASSENGER SERVICE REPRESENTATIVE LAB BLOOD BKR ORDERABLES F inal Result [address] [address] * CBC and differential (04/01/2020 3:07 PM EDT) WBC 7.58 4.00 - 11.00 K/uL [facility] Comment:Note Reference Range updates to all CBC and Differential results. RBC 4.71 3.72 - 5.30 M/uL [facility] HGB 13.9 10.6 - 15.5 g/dL [facility] Comment:Note updated Referen ce Ranges for all CBC and Differential results. HCT 42.4 32.0 - 45.0 % [facility] PLT 336 140 - 430 K/uL [facility] MCV 90.0 78.0 - 97.0 fL [facility] MCH 29.5 25.0 - 33.0 pg [facility] MCHC 32.8 32.0 - 36.0 g/dL [facility] RDW 13.1 11.0 - 16.0 % [facility] MPV 10.2 8.4 - 12.8 fl [facility] NRBC 0.00 0 /100 WBCs [facility] ABSOLUTE NRBC 0.00 0 K/uL [facility] DIFF METHOD Auto [facility] NEUTS 50.9 43.0 - 75.0 % [facility] LYMPHS 36.4 18.2 - 47.4 % [facility] MONOS 8.2 4.00 - 11.00 % [facility] EOS 3.4 0.0 - 8.0 % [facility] BASOS 0.8 0.0 - 2.0 % [facility] Granulocytes, immature (%) 0.3 0.0 - 0.9 % [facility] ABSOLUTE NEUTS 3.86 1.80 - 7.70 K/uL [facility] ABSOLUTE LYMPHS 2.76 1.00 - 3.10 K/uL [facility] ABSOLUTE MONOS 0.62 0.20 - 0.80 K/uL [facility] ABSOLUTE EOS 0.26 0.00 - 0.80 K/uL [facility] ABSOLUTE BASOS 0.06 0.00 - 0.09 K/uL [facility] Granulocytes, immature 0.02 0.00 - 0.05 K/uL [facility] Blood 04/01/2020 3:07 PM EDT 04/01/2020 3:13 PM EDT Lauryn Elias [facility] BLOOD BKR ORDERABLES F inal Result Performing Organization Address City/[facility]/ZIP Co de Phone Number [address] [address] * Immunoglobulin A (04/01/2020 3:07 PM EDT) Pathologist [facility] IgA 208 70 - 400 mg/dL [facility] Blood 04/01/2020 3:07 PM EDT 04/01/2020 3:13 PM EDT Lauryn Tressarenny Elias [facility] BLOOD BKR ORDERABLES F inal Result [address] [address] * Tissue transglutaminase IgA (04/01/2020 3:07 PM EDT) TTG IGA ANTIBODY <1.2 <4.0 (Negative) U/mL [facility] Blood 04/01/2020 3:07 PM EDT 04/01/2020 3:13 PM EDT us Lauryn Elias PASSENGER SERVICE REPRESENTATIVE LAB BLOOD BKR ORDERABLES F inal Result [facility] MED[facility] [address] [place] [address] documented in this encounter Visit Diagnoses Diagnosis Constipation, unspecified constipation type- Primary Anal or rectal pain Abdominal pain, left lower quadrant Change in bowel habits Other symptoms involving digestive system documented in this encounter Care Teams Snow Removing Supervisor Relationship Specialty Start Date End Date Dario Melendez MD [address] [place] [phone] [email or web address] PCP - General Family Medicine 12/25/18 documented as of this encounter Additional Source Comments The information contained in this document represents components of the legal health record. It is not the complete legal health record.[facility]
--- OUTSIDE RECORDS SUMMARY | 2025-05-25 18:22 | XMS_ITS | Encounter Summary ---
Author Organization [facility] Address [address] [facility] [address] [place] [address] Phone Care Team Providers Care Baker Pastry Name Role Phone Dario Melendez MD Primary Care Prov ider Reason for Referral * MRI/CAT Scan - Closed Specialty Diagnoses / Procedures Referred By Contac t Referred To Contact Radiology Diagnoses Other specified personal risk factors, not elsewhere classified Procedures MRI Breast (Bilateral) CHG MRI BREAST WITHOUT&WITH CONTRAST W/CAD BILATERAL Dario Melendez MD [address] [place] [address] Phone: tel: fax: mailto:[email or web address] Referral ID Status Reason Start Date Expiration Date Visits Re quested Visits Authorized [id number] Closed 11/10/2024 01/09/2025 1 1 Encounter Details Date Type Department Care Team (Late st Contact Info) Description 01/20/2024 Transcribe Orders Virtual Department [address] [place] [address] Dario Melendez MD [address] [place] [phone] [email or web address] Other specified personal risk factors, not elsewhere classified (Primary Dx) Social History Tobacco Use Types [...] Description 08/11/2025 10:15 AM EST Office Visit [facility] [address] [place] [address] [address] [facility], [address] [place] [address] Jorge Wang MD [address] [facility], [address] [phone] documented as of this encounter Results * BI MRI BREAST WITH AND WITHOUT [...] cm from the nipple there is a [id number] hyperintense, oval, clip containing, enhancing (progressive-type)mass measuring [...] MD IMG MR BREAST Fi nal Result documented in this encounter Visit Diagnoses Diagnosis Other specified personal risk factors, not elsewhere classified- Primary documented in this encounter Care Teams Baker Pastry Relationship Specialty Start Date End Date Dario Melendez MD [address] [place] [phone] [email or web address] PCP - General Family Medicine 12/25/18 documented as of this encounter Additional Source Comments The information contained in this document represents components of the legal health record. It is not the complete legal health record.[facility]
--- OUTSIDE RECORDS SUMMARY | 2025-05-25 18:22 | XMS_ITS | Encounter Summary ---
Author Organization [facility] Address [address] [facility] [address] [place] [address] Phone Care Team Providers Care Central Supply Worker Name Role Phone Dario Melendez MD Primary Care Prov ider Encounter Details Date Type Department Care Team (Late Contact Info) Description 05/10/2020 Procedure Pass [facility]oscopy Admitting Dept Virtual Department [address] [place] [address] Social History Tobacco Use Types Packs/Day Years [...] Encounters Date Type Department Care Team (Late Contact Info) Description 08/11/2025 10:15 AM EST Office Visit [facility] [address] [place] [address] 3rd Floor, [address] [place] [address] Jorge Wang MD 22 [facility], [address] [address] documented as of this encounter Visit Diagnoses Not on filedocumented in this encounter Care Teams Central Supply Worker Relationship Specialty Start Date End Date Dario Melendez MD [address] [place] [phone] [email or web address] PCP - General Family Medicine 12/25/18 documented as of this encounter Additional Source Comments The information contained in this document represents components of the legal health record. It is not the complete legal health record.[facility]
== END 2025-05-25 16:12 | disposition home or self-care (01) ==
LOC: HO.HCS 15:18
PROVIDERS: Visit Provider Nurse Practitioner Family
DX: R00.2 Palpitations (principal); R07.89 Other chest pain; R94.39 Abnormal result of other cardiovascular function study; Z51.89 Encounter for other specified aftercare
CPT/HCPCS: 99204; G2211

== ENCOUNTER → 2025-05-28 10:28 | Outpatient (REF) | payer OTHER, SELFPAY ==
--- OUTSIDE RECORDS SUMMARY | 2007-09-18 23:00 | XMS_ITS | Encounter Summary ---
Author Organization [facility] Address [address] [place] [address] Phone Care Team Providers Care Promotional Marketing Agent Name Role Phone Unavailable Primary Care Provider Unavailabl e Encounter Details Date Type Department Care Team (Late st Contact Info) Description 09/19/2007 Hospital Encounter [facility],Outside Imaging 30 [place], [place] [phone] System, Provider Not In, [facility] Partners [address] [address] Social History Tobacco Use Types Packs/Day Years [...] 12:19 PM EDT Aurora Phillip RN * [place] Suicide Severity Rating Scale (Screener/Recent Self-Report) Question [...] Description 08/11/2025 10:15 AM EST Office Visit [facility] 22 [facility] 3rd Floor, [address] [place] [address] Jorge Wang MD 22 [facility], [address] [place] [address] [email or web address] documented as of this encounter Procedures Procedure [...] It is not the complete legal health record.[facility]
--- OUTSIDE RECORDS SUMMARY | 2009-11-03 23:00 | XMS_ITS | Encounter Summary ---
Author Organization [facility] Address [address] [place] [address] Phone Care Team Providers Care Rubber Compounder Formulator Name Role Phone Unavailable Primary Care Provider Unavailabl e Encounter Details Date Type Department Care Team (Late st Contact Info) Description 11/04/2009 Hospital Encounter [facility],Outside Imaging 30 [place], [place] [phone] System, Provider Not In, PhD Partners [address] [address] Social History Tobacco Use Types Packs/Day Years [...] 12:19 PM EDT Aurora Phillip RN * [place] Suicide Severity Rating Scale (Screener/Recent Self-Report) Question [...] Description 08/11/2025 10:15 AM EST Office Visit [facility] 22 [facility] 3rd Floor, [address] [place] [address] Jorge Wang MD 22 [facility], [address] [place] [address] [email or web address] documented as of this encounter Procedures Procedure Name Priority Date/Time Associated Diagnosis Comments BI US BREAST OUTSIDE (NO INTERPRETATION) Routine 11/04/2009 12:00 AM EDT documented in this encounter Results * US Breast Outside (No Interpretation) (11/04/2009 12:00 AM EDT) Narrative SYSTEMGENERATED, DOCUMENTATION - 06/07/2021 3:51 PM EST This study is for PACS storage only and not for interpretation. us Provider Not In System PhD IMG OUTSIDE IMAGING W /OUT INTERPRETATION Final Result documented in this encounter Visit Diagnoses Not on filedocumented in this encounter Additional Source Comments The information contained in this document represents components of the legal health record. It is not the complete legal health record.[facility]
--- OUTSIDE RECORDS SUMMARY | 2010-05-18 | XMS_ITS | Encounter Summary ---
Author Organization [facility] Address [email or web address] [place] [address] Phone Care Team Providers Care Professor Of Sport Management Name Role Phone Unavailable Primary Care Provider Unavailabl e Encounter Details Date Type Department Care Team (Late st Contact Info) Description 05/18/2010 Hospital Encounter [facility],Outside Imaging 30 [place], [place] [phone] System, Provider Not In, PhD Partners [address] [address] Social History Tobacco Use Types Packs/Day Years [...] 12:19 PM EDT Aurora Phillip RN * [place] Suicide Severity Rating Scale (Screener/Recent Self-Report) Question [...] Description 08/11/2025 10:15 AM EST Office Visit [facility] [address] [facility] 3rd Floor, [address] [place] [address] Jorge Wang MD 22 [facility], [address] [place] [address] [email or web address] documented as of this encounter Procedures Procedure [...] It is not the complete legal health record.[facility]
--- OUTSIDE RECORDS SUMMARY | 2011-03-20 23:00 | XMS_ITS | Encounter Summary ---
Author Organization [facility] Address [address] [place] [address] Phone Care Team Providers Care Supervisor Forming And Tempering Name Role Phone Unavailable Primary Care Provider Unavailabl e Encounter Details Date Type Department Care Team (Late st Contact Info) Description 03/21/2011 Hospital Encounter [facility],Outside Imaging 30 [place], [place] [phone] System, Provider Not In, PhD Partners [address] [address] Social History Tobacco Use Types Packs/Day Years [...] 12:19 PM EDT Aurora Phillip RN * [place] Suicide Severity Rating Scale (Screener/Recent Self-Report) Question [...] Description 08/11/2025 10:15 AM EST Office Visit [facility] 22 [facility] 3rd Floor, [address] [place] [address] Jorge Wang MD 22 [facility], [address] [place] [address] [email or web address] documented as of this encounter Procedures Procedure [...] It is not the complete legal health record.[facility]
--- OUTSIDE RECORDS SUMMARY | 2013-02-24 23:00 | XMS_ITS | Encounter Summary ---
Author Organization [facility] Address [address] [place] [address] Phone Care Team Providers Care Rail Director Name Role Phone Unavailable Primary Care Provider Unavailabl e Encounter Details Date Type Department Care Team (Late st Contact Info) Description 02/25/2013 Hospital Encounter [facility],Outside Imaging 30 [place], [place] [phone] System, Provider Not In, PhD Partners [address] [address] Social History Tobacco Use Types Packs/Day Years [...] 12:19 PM EDT Aurora Phillip RN * [place] Suicide Severity Rating Scale (Screener/Recent Self-Report) Question [...] Description 08/11/2025 10:15 AM EST Office Visit [facility] 22 [facility] 3rd Floor, [address] [place] [address] Jorge Wang MD 22 [facility], [address] [place] [address] [email or web address] documented as of this encounter Procedures Procedure Name Priority Date/Time Associated Diagnosis Comments BI MAMMOGRAM OUTSIDE (NO INTERPRETATION) Routine 02/25/2013 12:00 AM EDT documented in this encounter Results * Mammogram Outside (No Interpretation) (02/25/2013 12:00 AM EDT) Narrative SYSTEMGENERATED, DOCUMENTATION - 06/07/2021 3:49 PM EST This study is for PACS storage only and not for interpretation. us Provider Not In System PhD IMG OUTSIDE IMAGING W /OUT INTERPRETATION Final Result documented in this encounter Visit Diagnoses Not on filedocumented in this encounter Additional Source Comments The information contained in this document represents components of the legal health record. It is not the complete legal health record.[facility]
--- OUTSIDE RECORDS SUMMARY | 2013-02-24 23:05 | XMS_ITS | Encounter Summary ---
Author Organization [facility] Address [address] [place] [address] Phone Care Team Providers Care Billboard Installer Name Role Phone Unavailable Primary Care Provider Unavailabl e Encounter Details Date Type Department Care Team (Late st Contact Info) Description 02/25/2013 12:05 AM EDT Hospital Encounter [facility],Outside Imaging 30 [place] [address] System, Provider Not In, PhD Partners [address] [address] Social History Tobacco Use Types Packs/Day Years [...] 12:19 PM EDT Aurora Phillip RN * [place] Suicide Severity Rating Scale (Screener/Recent Self-Report) Question [...] Description 08/11/2025 10:15 AM EST Office Visit [facility] 22 [facility] 3rd Floor, [address] [place] [address] Jorge Wang MD 22 [facility], [address] [place] [address] [email or web address] documented as of this encounter Procedures Procedure [...] It is not the complete legal health record.[facility]
--- OUTSIDE RECORDS SUMMARY | 2025-05-28 12:50 | XMS_ITS | Encounter Summary ---
Author Organization [facility] Address [address] [facility] [address] [place] [address] Phone Care Team Providers Care Motor Room Controller Name Role Phone Dario Melendez MD Primary Care Prov ider Encounter Details Date Type Department Care Team (Late Contact Info) Description 06/07/2021 Ancillary Orders [facility],Outside Imaging [address] [place] [address] System, Provider Not In, PhD Partners [address] [address] Social History Tobacco Use Types Packs/Day Years [...] Description 08/11/2025 10:15 AM EST Office Visit [facility] [address] [place] [address] 3rd Floor, [address] [place] [address] Jorge Wang MD 22 [facility], [address] [place] [address] documented as of this encounter Results * US Breast Outside (No Interpretation) (02/25/2013 12:05 AM EDT) Narrative SYSTEMGENERATED, DOCUMENTATION - 06/07/2021 3:52 PM EST This study is for PACS storage only and not for interpretation. us Provider Not In System PhD IMG OUTSIDE IMAGING W /OUT INTERPRETATION Final Result documented in this encounter Visit Diagnoses Not on filedocumented in this encounter Care Teams Motor Room Controller Relationship Specialty Start Date End Date Dario Melendez MD [address] [place] [phone] [email or web address] PCP - General Family Medicine 12/25/18 documented as of this encounter Additional Source Comments The information contained in this document represents components of the legal health record. It is not the complete legal health record.[facility]
--- OUTSIDE RECORDS SUMMARY | 2025-05-28 12:50 | XMS_ITS | Encounter Summary ---
Author Organization [facility] Address [address] [employer] [facility] [address] [place] [address] Phone Care Team Providers Care International Account Manager Name Role Phone Dario Melendez MD Primary Care Prov ider Encounter Details Date Type Department Care Team (Late Contact Info) Description 06/07/2021 Ancillary Orders [facility],Outside Imaging 30 [place] [address] System, Provider Not In, PhD Partners [address] [address] Social History Tobacco Use Types Packs/Day Years [...] Description 08/11/2025 10:15 AM EST Office Visit [facility] [address] [place] [address] 3rd Floor, [address] [place] [address] Jorge Wang MD 22 [facility], [address] [place] [address] documented as of this encounter Results * US Breast Outside (No Interpretation) (03/21/2011 12:00 AM EDT) Narrative SYSTEMGENERATED, DOCUMENTATION - 06/07/2021 3:54 PM EST This study is for PACS storage only and not for interpretation. us Provider Not In System PhD IMG OUTSIDE IMAGING W /OUT INTERPRETATION Final Result documented in this encounter Visit Diagnoses Not on filedocumented in this encounter Care Teams International Account Manager Relationship Specialty Start Date End Date Dario Melendez MD [address] [place] [phone] [email or web address] PCP - General Family Medicine 12/25/18 documented as of this encounter Additional Source Comments The information contained in this document represents components of the legal health record. It is not the complete legal health record.[facility]
--- OUTSIDE RECORDS SUMMARY | 2025-05-28 12:50 | XMS_ITS | Encounter Summary ---
Author Organization [facility] Address [address] [employer] [facility] [address] [place] [address] Phone Care Team Providers Care Brush Hand Name Role Phone Dario Melendez MD Primary Care Prov ider Encounter Details Date Type Department Care Team (Late Contact Info) Description 06/07/2021 Ancillary Orders [facility],Outside Imaging 30 [place] [address] System, Provider Not In, PhD Partners [address] [address] Social History Tobacco Use Types Packs/Day Years [...] Description 08/11/2025 10:15 AM EST Office Visit [facility] [address] [place] [address] 3rd Floor, [address] [place] [address] Jorge Wang MD 22 [facility], [address] [place] [address] documented as of this encounter Results * US Breast Outside (No Interpretation) (05/18/2010 12:00 AM EST) Narrative SYSTEMGENERATED, DOCUMENTATION - 06/07/2021 4:00 PM EST This study is for PACS storage only and not for interpretation. us Provider Not In System PhD IMG OUTSIDE IMAGING W /OUT INTERPRETATION Final Result documented in this encounter Visit Diagnoses Not on filedocumented in this encounter Care Teams Brush Hand Relationship Specialty Start Date End Date Dario Melendez MD [address] [place] [phone] [email or web address] PCP - General Family Medicine 12/25/18 documented as of this encounter Additional Source Comments The information contained in this document represents components of the legal health record. It is not the complete legal health record.[facility]
--- OUTSIDE RECORDS SUMMARY | 2025-05-28 12:50 | XMS_ITS | Encounter Summary ---
Author Organization [facility] Address [address] [employer] [facility] [address] [place] [address] Phone Care Team Providers Care Recycling Coordinator Name Role Phone Dario Melendez MD Primary Care Prov ider Encounter Details Date Type Department Care Team (Late Contact Info) Description 06/07/2021 Ancillary Orders [facility],Outside Imaging 30 [place] [address] System, Provider Not In, PhD Partners [address] [address] Social History Tobacco Use Types Packs/Day Years [...] Description 08/11/2025 10:15 AM EST Office Visit [facility] [address] [place] [address] [address]rd Floor, [address] [place] [address] Jorge Wang MD 22 [facility], [address] [place] [address] documented as of this encounter Results * US Breast Outside (No Interpretation) (04/20/2015 12:05 AM EDT) Narrative SYSTEMGENERATED, DOCUMENTATION - 06/07/2021 3:57 PM EST This study is for PACS storage only and not for interpretation. us Provider Not In System PhD IMG OUTSIDE IMAGING W /OUT INTERPRETATION Final Result documented in this encounter Visit Diagnoses Not on filedocumented in this encounter Care Teams Recycling Coordinator Relationship Specialty Start Date End Date Dario Melendez MD [address] [place] [phone] [email or web address] PCP - General Family Medicine 12/25/18 documented as of this encounter Additional Source Comments The information contained in this document represents components of the legal health record. It is not the complete legal health record.[facility]
--- OUTSIDE RECORDS SUMMARY | 2025-05-28 12:50 | XMS_ITS | Encounter Summary ---
Author Organization [facility] Address [address] [employer] [facility] [address] [place] [address] Phone Care Team Providers Care Retention Specialist Name Role Phone Dario Melendez MD Primary Care Prov ider Encounter Details Date Type Department Care Team (Late Contact Info) Description 06/07/2021 Ancillary Orders [facility],Outside Imaging 30 [place] [address] System, Provider Not In, PhD Partners [address] [address] Social History Tobacco Use Types Packs/Day Years [...] Description 08/11/2025 10:15 AM EST Office Visit [facility] [address] [place] [address] 3rd Floor, [address] [place] [address] Jorge Wang MD 22 [facility], [address] [place] [address] documented as of this encounter Results * US Breast Outside (No Interpretation) (09/19/2007 12:00 AM EDT) Narrative SYSTEMGENERATED, DOCUMENTATION - 06/07/2021 3:50 PM EST This study is for PACS storage only and not for interpretation. us Provider Not In System PhD IMG OUTSIDE IMAGING W /OUT INTERPRETATION Final Result documented in this encounter Visit Diagnoses Not on filedocumented in this encounter Care Teams Retention Specialist Relationship Specialty Start Date End Date Dario Melendez MD [address] [place] [phone] [email or web address] PCP - General Family Medicine 12/25/18 documented as of this encounter Additional Source Comments The information contained in this document represents components of the legal health record. It is not the complete legal health record.[facility]
--- OUTSIDE RECORDS SUMMARY | 2025-05-28 12:50 | XMS_ITS | Encounter Summary ---
Author Organization [facility] Address [address] [place] [address] Phone Care Team Providers Care Funeral Service Manager Name Role Phone Nick Curran MD Primary Care Provider Dario Melendez MD Primary Care Prov ider Reason for Referral * - Closed Specialty Diagnoses / Procedures Referred By Deuce ashford Referred To Contact Diagnoses Chest pain, unspecified type Procedures Stress Test Exercise Ruby Zafar PA Phone: tel: fax: mailto:[email or web address] Referral ID Status Reason Start Date Expiration Date Visits Re quested Visits Authorized [id number] Closed 10/31/2018 10/31/2019 1 1 Encounter Details Date Type Department Care Team (Late st Contact Info) Description 10/31/2018 Transcribe [facility] [address] [facility] 3rd Floor, [address] [place], [place] [phone] Ruby Zafar PA [address] [place], [place] [phone] m Chest pain, unspecified type (Primary Dx) [...] Description 08/11/2025 10:15 AM EST Office Visit [facility] [address] [facility] 3rd Floor, [address] [place] [address] Jorge Wang MD 22 [facility], [address] [place], [place] [id number] documented as of this encounter Procedures Procedure [...] stress report for full details. Khris Pierson, PHARMACEUTICAL SALES REPRESENTATIVE . us Ruby ROGERS CV STRESS ORDERAB LES Final Result documented in this encounter Visit Diagnoses Diagnosis Chest pain, unspecified type- Primary documented in this encounter Care Teams Funeral Service Manager Relationship Specialty Start Date End Date Nick Curran MD [address] [place] [address] [place] [address] PCP - General Internal Medicine 04/17/16 12/24/18 Dario Melendez MD [address] [place] [phone] [email or web address] PCP - General Family Medicine 12/25/18 documented as of this encounter Additional Source Comments The information contained in this document represents components of the legal health record. It is not the complete legal health record.[facility]
--- OUTSIDE RECORDS SUMMARY | 2025-05-28 12:50 | XMS_ITS | Encounter Summary ---
Author Organization [facility] Address [address] [facility] [address] [place] [address] Phone Care Team Providers Care Volcanology Professor Name Role Phone Dario Melendez MD Primary Care Prov ider Encounter Details Date Type Department Care Team (Late st Contact Info) Description 06/07/2021 Ancillary Orders [facility],Outside Imaging 30 [place] [address] System, Provider Not In, PhD Partners [address] [address] Social History Tobacco Use Types Packs/Day Years [...] Description 08/11/2025 10:15 AM EST Office Visit [facility] [address] [place] [address] 3rd Floor, [address] [place] [address] Jorge Wang MD 22 [facility], [address] [place] [address] documented as of this encounter Results * Mammogram Outside (No Interpretation) (04/28/2015 12:10 AM EST) Narrative SYSTEMGENERATED, DOCUMENTATION - 06/07/2021 3:59 PM EST This study is for PACS storage only and not for interpretation. us Provider Not In System PhD IMG OUTSIDE IMAGING W /OUT INTERPRETATION Final Result documented in this encounter Visit Diagnoses Not on filedocumented in this encounter Care Teams Volcanology Professor Relationship Specialty Start Date End Date Dario Melendez MD [address] [place] [phone] [email or web address] PCP - General Family Medicine 12/25/18 documented as of this encounter Additional Source Comments The information contained in this document represents components of the legal health record. It is not the complete legal health record.[facility]
--- OUTSIDE RECORDS SUMMARY | 2025-05-28 12:50 | XMS_ITS | Encounter Summary ---
Author Organization [facility] Address [address] [employer] [facility] [address] [place] [address] Phone Care Team Providers Care Drum Reel Cutter Name Role Phone Dario Melendez MD Primary Care Prov ider Encounter Details Date Type Department Care Team (Late Contact Info) Description 06/07/2021 Ancillary Orders [facility],Outside Imaging 30 [place] [address] System, Provider Not In, PhD Partners [address] [address] Social History Tobacco Use Types Packs/Day Years [...] Description 08/11/2025 10:15 AM EST Office Visit [facility] [address] [place] [address] 3rd Floor, [address] [place] [address] Jorge Wang MD 22 [facility], [address] [place] [address] documented as of this encounter Visit Diagnoses Not on filedocumented in this encounter Care Teams Drum Reel Cutter Relationship Specialty Start Date End Date Dario Melendez MD [address] [place] [phone] [email or web address] PCP - General Family Medicine 12/25/18 documented as of this encounter Additional Source Comments The information contained in this document represents components of the legal health record. It is not the complete legal health record.[facility]
--- OUTSIDE RECORDS SUMMARY | 2025-05-28 12:50 | XMS_ITS | Encounter Summary ---
Author Organization [facility] Address [address] [facility] [address] [place] [address] Phone Care Team Providers Care Scarfer Operator Name Role Phone Dario Melendez MD Primary Care Prov ider Encounter Details Date Type Department Care Team (Late st Contact Info) Description 06/07/2021 Ancillary Orders [facility],Outside Imaging [address] [place] [address] System, Provider Not In, PhD Partners [address] [address] Social History Tobacco Use Types Packs/Day Years [...] Description 08/11/2025 10:15 AM EST Office Visit [facility] [address] [place] [address] 3rd Floor, [address] [place] [address] Jorge Wang MD 22 [facility], [address] [place] [address] documented as of this encounter Results * Mammogram Outside (No Interpretation) (02/25/2013 12:00 AM EDT) Narrative SYSTEMGENERATED, DOCUMENTATION - 06/07/2021 3:49 PM EST This study is for PACS storage only and not for interpretation. us Provider Not In System PhD IMG OUTSIDE IMAGING W /OUT INTERPRETATION Final Result documented in this encounter Visit Diagnoses Not on filedocumented in this encounter Care Teams Scarfer Operator Relationship Specialty Start Date End Date Dario Melendez MD [address] [place] [phone] [email or web address] PCP - General Family Medicine 12/25/18 documented as of this encounter Additional Source Comments The information contained in this document represents components of the legal health record. It is not the complete legal health record.[facility]
--- OUTSIDE RECORDS SUMMARY | 2025-05-28 12:50 | XMS_ITS | Encounter Summary ---
Author Organization [facility] Address [address] [facility] [address] [place] [address] Phone Care Team Providers Care Glove Brusher Name Role Phone Dario Melendez MD Primary Care Prov ider Encounter Details Date Type Department Care Team (Late st Contact Info) Description 06/07/2021 Ancillary Orders [facility],Outside Imaging 30 [place] [address] System, Provider Not In, PhD Partners [address] [address] Social History Tobacco Use Types Packs/Day Years [...] Description 08/11/2025 10:15 AM EST Office Visit [facility] [address] [place] [address] 3rd Floor, [address] [place] [address] Jorge Wang MD 22 [facility], [address] [place] [address] documented as of this encounter Results * Mammogram Outside (No Interpretation) (04/20/2015 12:00 AM EDT) Narrative SYSTEMGENERATED, DOCUMENTATION - 06/07/2021 3:53 PM EST This study is for PACS storage only and not for interpretation. us Provider Not In System PhD IMG OUTSIDE IMAGING W /OUT INTERPRETATION Final Result documented in this encounter Visit Diagnoses Not on filedocumented in this encounter Care Teams Glove Brusher Relationship Specialty Start Date End Date Dario Melendez MD [address] [place] [phone] [email or web address] PCP - General Family Medicine 12/25/18 documented as of this encounter Additional Source Comments The information contained in this document represents components of the legal health record. It is not the complete legal health record.[facility]
--- OUTSIDE RECORDS SUMMARY | 2025-05-28 12:50 | XMS_ITS | Encounter Summary ---
Author Organization [facility] Address [address] [facility] [address] [place] [address] Phone Care Team Providers Care Ice Cream Scooper Name Role Phone Dario Melendez MD Primary Care Prov ider Reason for Referral * Outpatient Procedure - Closed Specialty Diagnoses / Procedures Referred By Deuce ashford Referred To Contact Radiology Diagnoses Breast lump Procedures Mammogram Diagnostic Post Procedure (Right) Georgina Escobar MD Phone: tel: fax: mailto:[email or web address] Referral ID Status Reason Start Date Expiration Date Visits Re quested Visits Authorized [id number] Closed 07/01/2021 07/01/2022 1 1 Encounter Details Date Type Department Care Team (Late st Contact Info) Description 07/01/2021 Ancillary Orders [facility] 30 [place] [address] Georgina Escobar MD 15 [facility], 2nd [place] [address] [email or web address] Breast lump Social History Tobacco Use Types [...] Description 08/11/2025 10:15 AM EST Office Visit [facility] [address] [facility] 3rd Floor, [address] [place] [address] Jorge Wang MD 22 [facility], [address] [place] [address] [email or web address] documented as of this encounter Results * [...] Narrative 07/01/2021 12:15 PM EST Procedure: BI CORRECTION BIOPSY OF BREAST (RIGHT), BI MAMMOGRAM DIAGNOSTIC [...] patient's right breast was imaged with the [facility] ultrasound unit and images of the 2.1 [...] Beck Inman MD - 07/01/2021 Procedure: BI CORRECTION BIOPSY OF BREAST (RIGHT), BI MAMMOGRAM DIAGNOSTIC [...] patient's right breast was imaged with the [facility] ultrasound unit andimages of the 2.1 cm [...] 2nd cleavage view show satisfactoryplacement of the Girard shape micromarker within the targeted mass in [...] breast documented in this encounter Care Teams Ice Cream Scooper Relationship Specialty Start Date End Date Dario Melendez MD [address] [place] [phone] [email or web address] PCP - General Family Medicine 12/25/18 documented as of this encounter Additional Source Comments The information contained in this document represents components of the legal health record. It is not the complete legal health record.[facility]
--- OUTSIDE RECORDS SUMMARY | 2025-05-28 12:50 | XMS_ITS | Encounter Summary ---
Author Organization [facility] Address [address] [facility] [address] [place] [address] Phone Care Team Providers Care Powerhouse Mechanic Helper Name Role Phone Dario Melendez MD Primary Care Prov ider Encounter Details Date Type Department Care Team (Late Contact Info) Description 06/07/2021 Ancillary Orders [facility],Outside Imaging 30 [place] [address] System, Provider Not In, PhD Partners [address] [address] Social History Tobacco Use Types Packs/Day Years [...] Description 08/11/2025 10:15 AM EST Office Visit [facility] [address] [place] [address] 3rd Floor, [address] [place] [address] Jorge Wang MD 22 [facility], [address] [place] [address] documented as of this encounter Results * US Breast Outside (No Interpretation) (11/04/2009 12:00 AM EDT) Narrative SYSTEMGENERATED, DOCUMENTATION - 06/07/2021 3:51 PM EST This study is for PACS storage only and not for interpretation. us Provider Not In System PhD IMG OUTSIDE IMAGING W /OUT INTERPRETATION Final Result documented in this encounter Visit Diagnoses Not on filedocumented in this encounter Care Teams Powerhouse Mechanic Helper Relationship Specialty Start Date End Date Dario Melendez MD [address] [place] [phone] [email or web address] PCP - General Family Medicine 12/25/18 documented as of this encounter Additional Source Comments The information contained in this document represents components of the legal health record. It is not the complete legal health record.[facility]
--- OUTSIDE RECORDS SUMMARY | 2025-05-28 12:50 | XMS_ITS | Encounter Summary ---
Author Organization [facility] Address [address] [employer] [facility] [address] [place] [address] Phone Care Team Providers Care Dynamic Balancer Name Role Phone Dario Melendez MD Primary Care Prov ider Encounter Details Date Type Department Care Team (Late Contact Info) Description 06/07/2021 Ancillary Orders [facility],Outside Imaging 30 [place] [address] System, Provider Not In, PhD Partners [address] [address] Social History Tobacco Use Types Packs/Day Years [...] Description 08/11/2025 10:15 AM EST Office Visit [facility] [address] [place] [address] 3rd Floor, [address] [place] [address] Jorge Wang MD 22 [facility], [address] [place] [address] documented as of this encounter Results * [...] on filedocumented in this encounter Care Teams Dynamic Balancer Relationship Specialty Start Date End Date Dario Melendez MD [address] [place] [phone] [email or web address] PCP - General Family Medicine 12/25/18 documented as of this encounter Additional Source Comments The information contained in this document represents components of the legal health record. It is not the complete legal health record.[facility]
--- OUTSIDE RECORDS SUMMARY | 2025-05-28 12:50 | XMS_ITS | Encounter Summary ---
Author Organization [facility] Address [address] [place] [address] Phone Care Team Providers Care Lace Finisher Name Role Phone Nick Curran MD Primary Care Provider Dario Melendez MD Primary Care Prov ider Encounter Details Date Type Department Care Team (Late st Contact Info) Description 06/15/2016 Procedure Pass [facility] - [facility], [address] [address] Social History Tobacco Use Types Packs/Day Years [...] Description 08/11/2025 10:15 AM EST Office Visit [facility] [address] [place] [address] 3rd Floor, [address] [place] [address] Jorge Wang MD [address] [facility], [address] [place] [address] documented as of this encounter Visit Diagnoses Not on filedocumented in this encounter Care Teams Lace Finisher Relationship Specialty Start Date End Date Nick Curran MD [address] [place] [address] [place] [address] PCP - General Internal Medicine 04/17/16 12/24/18 Dario Melendez MD [address] [place] [phone] [email or web address] PCP - General Family Medicine 12/25/18 documented as of this encounter Additional Source Comments The information contained in this document represents components of the legal health record. It is not the complete legal health record.[facility]
--- OUTSIDE RECORDS SUMMARY | 2025-05-28 12:51 | XMS_ITS | Encounter Summary ---
Author Organization [facility] Address [address] [facility] [address] [place] [address] Phone Care Team Providers Care Printing Mechanist Name Role Phone Dario Melendez MD Primary Care Prov ider Encounter Details Date Type Department Care Team (Latest Contact Info) Description 04/01/2020 Transcribe Orders [facility] [address] [place] [address] Lauryn Elias, SOLVENT MIXER [address] [place] [address] [email or web address] Constipation, unspecified constipation type (Primary Dx); Anal [...] Description 08/11/2025 10:15 AM EST Office Visit [facility] [address] [place] [address] 3rd Floor, [address] [place] [address] Jorge Wang MD [address] [place] [address], [address] [place] [address] documented as of this encounter Results * TSH (04/01/2020 3:07 PM EDT) [facility] TSH 2.46 0.27 - 4.20 uIU/mL [facility] Blood 04/01/2020 3:07 PM EDT 04/01/2020 3:13 PM EDT Lauryn Elias [facility] LAB BLOOD BKR ORDERABLES F inal Result [address] [address] * C-Reactive Protein (04/01/2020 3:07 PM EDT) [facility] C REACTIVE PROTEIN 1.0 0.0 - 4.0 mg/L [facility] Blood 04/01/2020 3:07 PM EDT 04/01/2020 3:13 PM EDT Lauryn Elias [facility] LAB BLOOD BKR ORDERABLES F inal Result [address] [address] * (ABNORMAL) Comprehensive metabolic panel (04/01/2020 3:07 PM EDT) [facility] SODIUM 140 133 - 146 mmol/L [facility] POTASSIUM 4.2 3.3 - 5.1 mmol/L [facility] CHLORIDE 103 96 - 108 mmol/L [facility] CO2 25 21 - 35 mmol/L [facility] BUN 16 6 - 19 mg/dL [facility] CREATININE 0.80 0.5 - 1.5 mg/dL [facility] GLUCOSE 92 70 - 99 mg/dL [facility] ALBUMIN 5.1(H) 3.9 - 4.8 g/dL [facility] TOTAL PROTEIN 8.1(H) 6.5 - 8.0 g/dL [facility] CALCIUM 10.0 8.4 - 10.3 mg/dL [facility] ALKALINE PHOSPHATASE 54 39 - 117 U/L [facility] TOTAL BILIRUBIN 0.2 0.0 - 1.2 mg/dL [facility] AST 19 0 - 37 U/L [facility] ALT 10 0 - 40 U/L [facility] GLOBULIN 3.0 1 - 4.8 g/dL [facility] EGFR 92 >59 mL/min/1.7 3m2 [facility] Comment:Estimated glomerular filtration rate calculated using the CKD-EPI equation. ANION GAP 16 10 - 20 mmol/L [facility] Blood 04/01/2020 3:07 PM EDT 04/01/2020 3:13 PM EDT us Laurynterrell Gardnerrenny Elias [employer] [facility] LAB BLOOD BKR ORDERABLES F inal Result [address] [address] * CBC and differential (04/01/2020 3:07 PM EDT) WBC 7.58 4.00 - 11.00 K/uL [facility] Comment:Note Reference Range updates to all CBC and Differential results. RBC 4.71 3.72 - 5.30 M/uL [facility] HGB 13.9 10.6 - 15.5 g/dL [facility] Comment:Note updated Referen ce Ranges for all CBC and Differential results. HCT 42.4 32.0 - 45.0 % [facility] PLT 336 140 - 430 K/uL [facility] MCV 90.0 78.0 - 97.0 fL [facility] MCH 29.5 25.0 - 33.0 pg [facility] MCHC 32.8 32.0 - 36.0 g/dL [facility] RDW 13.1 11.0 - 16.0 % [facility] MPV 10.2 8.4 - 12.8 fl [facility] NRBC 0.00 0 /100 WBCs [facility] ABSOLUTE NRBC 0.00 0 K/uL [facility] DIFF METHOD Auto [facility] NEUTS 50.9 43.0 - 75.0 % [facility] LYMPHS 36.4 18.2 - 47.4 % [facility] MONOS 8.2 4.00 - 11.00 % [facility] EOS 3.4 0.0 - 8.0 % [facility] BASOS 0.8 0.0 - 2.0 % [facility] Granulocytes, immature (%) 0.3 0.0 - 0.9 % [facility] ABSOLUTE NEUTS 3.86 1.80 - 7.70 K/uL [facility] ABSOLUTE LYMPHS 2.76 1.00 - 3.10 K/uL [facility] ABSOLUTE MONOS 0.62 0.20 - 0.80 K/uL [facility] ABSOLUTE EOS 0.26 0.00 - 0.80 K/uL [facility] ABSOLUTE BASOS 0.06 0.00 - 0.09 K/uL [facility] Granulocytes, immature 0.02 0.00 - 0.05 K/uL [facility] Blood 04/01/2020 3:07 PM EDT 04/01/2020 3:13 PM EDT Lauryn Elias [facility] LAB BLOOD BKR ORDERABLES F inal Result Performing Organization Address City/[facility]/ZIP Co de Phone Number [address] [address] * Immunoglobulin A (04/01/2020 3:07 PM EDT) Pathologist [facility] IgA 208 70 - 400 mg/dL [facility] Blood 04/01/2020 3:07 PM EDT 04/01/2020 3:13 PM EDT Lauryn Tressarenny Elias [facility] LAB BLOOD BKR ORDERABLES F inal Result [address] [address] * Tissue transglutaminase IgA (04/01/2020 3:07 PM EDT) TTG IGA ANTIBODY <1.2 <4.0 (Negative) U/mL [facility] MED[facility] Blood 04/01/2020 3:07 PM EDT 04/01/2020 3:13 PM EDT us aLuryn Elias [employer] LAB BLOOD BKR ORDERABLES F inal Result [facility] MED[facility] [address] [place] [address] documented in this encounter Visit Diagnoses Diagnosis Constipation, unspecified constipation type- Primary Anal or rectal pain Abdominal pain, left lower quadrant Change in bowel habits Other symptoms involving digestive system documented in this encounter Care Teams Printing Mechanist Relationship Specialty Start Date End Date Dario Melendez MD [address] [place] [phone] [email or web address] PCP - General Family Medicine 12/25/18 documented as of this encounter Additional Source Comments The information contained in this document represents components of the legal health record. It is not the complete legal health record.[facility]
--- OUTSIDE RECORDS SUMMARY | 2025-05-28 12:51 | XMS_ITS | Encounter Summary ---
Author Organization [facility] Address [address] [place] [address] Phone Care Team Providers Care Carbon Brusher Assembler Name Role Phone Dario Melendze MD Primary Care Prov ider Reason for Referral * MRI/CAT Scan - Closed Specialty Diagnoses / Procedures Referred By Deuce ashford Referred To Contact Radiology Diagnoses Abnormal stress test Procedures NC Myocardial Perfusion Exercise Multiple Ruby Zafar PA Phone: tel: fax: mailto: Referral ID Status Reason Start Date Expiration Date Visits Re quested Visits Authorized [id number] Closed 01/07/2019 03/08/2019 1 1 Encounter Details Date Type Department Care Team (Late st Contact Info) Description 12/27/2018 Transcribe [facility] [address] [place] [address] 3rd Floor, [address] [place] [address] Ruby Zafar PA [address] [place], [place] [phone] [email or web address] Abnormal stress test (Primary Dx) Social [...] Description 08/11/2025 10:15 AM EST Office Visit [facility] [address] [facility] 3rd Floor, [address] [place] [address] Jorge Wang MD [address] [facility], [address] [place] [address] [email or web address] documented as of this encounter Results * [...] in SPECT format, reconstructed tomographically and compared [id number] in short axis, horizontal long axis and [...] stress report for full details. Adrian Monet BOLT MAN . Perfusion Comments Stress LV cavity volume [...] study documented in this encounter Care Teams Carbon Brusher Assembler Relationship Specialty Start Date End Date Dario Melendez MD [address] [place] [phone] PCP - General Family Medicine 12/25/18 documented as of this encounter Additional Source Comments The information contained in this document represents components of the legal health record. It is not the complete legal health record.[facility]
--- OUTSIDE RECORDS SUMMARY | 2025-05-28 12:51 | XMS_ITS | Encounter Summary ---
Author Organization [facility] Address [address] [facility] [address] [place] [address] Phone Care Team Providers Care Him Specialist Name Role Phone Dario Melendez MD Primary Care Prov ider Encounter Details Date Type Department Care Team (Late Contact Info) Description 06/07/2021 Ancillary Orders [facility],Outside Imaging [address] [place] [address] System, Provider Not In, [facility] [address] [address] Social History Tobacco Use Types Packs/Day Years [...] Description 08/11/2025 10:15 AM EST Office Visit [facility] [address] [place] [address] 3rd Floor, [address] [place] [address] Jorge Wang MD [address] [facility], [address] [place] [address] documented as of this encounter Results * US Breast Outside (No Interpretation) (04/28/2015 12:00 AM EST) Narrative SYSTEMGENERATED, DOCUMENTATION - 06/07/2021 3:56 PM EST This study is for PACS storage only and not for interpretation. us Provider Not In System PhD IMG OUTSIDE IMAGING W /OUT INTERPRETATION Final Result documented in this encounter Visit Diagnoses Not on filedocumented in this encounter Care Teams Him Specialist Relationship Specialty Start Date End Date Dario Mleendez MD [address] [place] [phone] [email or web address] PCP - General Family Medicine 12/25/18 documented as of this encounter Additional Source Comments The information contained in this document represents components of the legal health record. It is not the complete legal health record.[facility]
--- OUTSIDE RECORDS SUMMARY | 2025-05-28 12:51 | XMS_ITS | Encounter Summary ---
Author Organization [facility] Address [address] [facility] [address] [place] [address] Phone Care Team Providers Care Recreation Clerk Name Role Phone Dario Melendez MD Primary Care Prov ider Encounter Details Date Type Department Care Team (Late Contact Info) Description 05/10/2020 Procedure Pass [facility] Endoscopy Admitting Dept Virtual Department [address] [place] [address] Social History Tobacco Use Types Packs/Day Years [...] Description 08/11/2025 10:15 AM EST Office Visit [facility] [address] [place] [address] 3rd Floor, [address] [place] [address] Jorge Wang MD 22 [facility], [address] [address] documented as of this encounter Visit Diagnoses Not on filedocumented in this encounter Care Teams Recreation Clerk Relationship Specialty Start Date End Date Dario Melendez MD [address] [place] [phone] [email or web address] PCP - General Family Medicine 12/25/18 documented as of this encounter Additional Source Comments The information contained in this document represents components of the legal health record. It is not the complete legal health record.[facility]
--- OUTSIDE RECORDS SUMMARY | 2025-05-28 12:51 | XMS_ITS | Encounter Summary ---
Author Organization [facility] Address [address] [place] [address] Phone Care Team Providers Care Local Announcer Name Role Phone Dario Melendez MD Primary Care Prov ider Encounter Details Date Type Department Care Team (Late st Contact Info) Description 12/23/2024 Procedure Pass [facility] Echo Lab [address] [place] [address] Social History Tobacco Use Types Packs/Day Years [...] Description 08/11/2025 10:15 AM EST Office Visit [facility] [address] [place] [address] 3rd Floor, [address] [place] [address] Jorge Wang MD [address] [place] [address] documented as of this encounter Visit Diagnoses Not on filedocumented in this encounter Care Teams Local Announcer Relationship Specialty Start Date End Date Dario Melendez MD [address] [place] [phone] [email or web address] PCP - General Family Medicine 7/3/19 documented as of this encounter Additional Source Comments The information contained in this document represents components of the legal health record. It is not the complete legal health record.[facility]
--- OUTSIDE RECORDS SUMMARY | 2025-05-28 12:52 | XMS_ITS | Encounter Summary ---
Author Organization [facility] Address [address] [place] [address] [place] [address] Phone Care Team Providers Care Tool Crib Clerk Name Role Phone Dario Melendez MD Primary Care Prov ider Reason for Referral * Outpatient Procedure - Closed Specialty Diagnoses / Procedures Referred By Deuce ashford Referred To Contact Diagnoses Angina pectoris, unspecified Chest pain, unspecified type Procedures Adult Echo TTE Dario Melendez MD [address] [place] [address] Phone: tel: fax: mailto:[email or web address] Referral ID Status Reason Start Date Expiration Date Visits Re quested Visits Authorized [id number] Closed 12/23/2024 12/23/2025 1 1 Encounter Details Date Type Department Care Team (Late st Contact Info) Description 12/23/2024 Transcribe Orders Virtual Department [address] [place] [address] Dario Melendez MD [address] [place] [phone] [email or web address] Angina pectoris, unspecified (Primary Dx); Chest pain, [...] Description 08/11/2025 10:15 AM EST Office Visit [facility] [address] [facility] 3rd Floor, [address] [place] [address] Jorge Wang MD [address] [facility], [address] [place] [address] [email or web address] documented as of this encounter Results * [...] type documented in this encounter Care Teams Tool Crib Clerk Relationship Specialty Start Date End Date Dario Melendez MD [address] [place] [phone] [email or web address] PCP - General Family Medicine 12/25/18 documented as of this encounter Additional Source Comments The information contained in this document represents components of the legal health record. It is not the complete legal health record.[facility]
--- OUTSIDE RECORDS SUMMARY | 2025-05-28 12:52 | XMS_ITS | Encounter Summary ---
Author Organization [facility] Address [address] [place] [phone] Phone Care Team Providers Care Hook And Eye Sewing Machine Operator Name Role Phone Dario Melendez MD Primary Care Prov ider Encounter Details Date Type Department Care Team (Late st Contact Info) Description 01/20/2024 Procedure Pass [facility], [address] [address] Social History Tobacco Use Types Packs/Day Years [...] Description 08/11/2025 10:15 AM EST Office Visit [facility] [address] [facility] 3rd Floor, [address] [place] [address] Jorge Wang MD [address] [facility], [address] [place] [address] [email or web address] documented as of this encounter Visit Diagnoses Not on filedocumented in this encounter Care Teams Hook And Eye Sewing Machine Operator Relationship Specialty Start Date End Date Dario Melendez MD [address] [place] [phone] [email or web address] PCP - General Family Medicine 12/25/18 documented as of this encounter Additional Source Comments The information contained in this document represents components of the legal health record. It is not the complete legal health record.[facility]
--- OUTSIDE RECORDS SUMMARY | 2025-05-28 12:52 | XMS_ITS | Encounter Summary ---
Author Organization [facility] Address [address] [facility] [address] [place] [address] Phone Care Team Providers Care Mental Health Director Name Role Phone Dario Melendez MD Primary Care Prov ider Reason for Referral * MRI/CAT Scan - Closed Specialty Diagnoses / Procedures Referred By Contac t Referred To Contact Radiology Diagnoses Other specified personal risk factors, not elsewhere classified Procedures MRI Breast (Bilateral) CHG MRI BREAST WITHOUT&WITH CONTRAST W/CAD BILATERAL Dario Melendez MD [address] [place] [address] Phone: tel: fax: mailto:[email or web address] Referral ID Status Reason Start Date Expiration Date Visits Re quested Visits Authorized [id number] Closed 11/10/2024 01/09/2025 1 1 Encounter Details Date Type Department Care Team (Late st Contact Info) Description 01/20/2024 Transcribe Orders Virtual Department [address] [place] [address] Dario Melendez MD [address] [place] [phone] [email or web address] Other specified personal risk factors, not elsewhere [...] Description 08/11/2025 10:15 AM EST Office Visit [facility] [address] [place] [address] 3rd [facility], [address] [place] [address] Jorge Wang MD 22 [facility], [address] [phone] documented as of this encounter Results * [...] cm from the nipple there is a [id number] hyperintense, oval, clip containing, enhancing (progressive-type)mass measuring [...] Primary documented in this encounter Care Teams Mental Health Director Relationship Specialty Start Date End Date Dario Melendez MD [address] [place] [phone] [email or web address] PCP - General Family Medicine 12/25/18 documented as of this encounter Additional Source Comments The information contained in this document represents components of the legal health record. It is not the complete legal health record.[facility]
--- OUTSIDE RECORDS SUMMARY | 2025-05-28 12:52 | XMS_ITS | Clinical Summary ---
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) 04/01/2025 3:45 PM EDT Office Visit [facility] [address] [place] [address] Merritt Ibrahim CNP Subcutaneous mass of back [...] Description 08/11/2025 10:15 AM EST Office Visit [facility] [address] [place] [address] 3rd Floor, [address] [place] [address] Jorge Wang MD [address] [facility], [address] [place] [phone] [email or web address] Health Maintenance Due Date Last Done Comments [...] this topic Medical Devices Implanted Type Area Emergency Medicine Physician Device Identifier Shelf Expiration Date Model / Serial / Lot Marker Ultraclip 17ga 10cm Tissue Dual Trigger Breast Ti Shiloh Shape Bx/5ea - [id number] Implanted:Qty: 1 on 07/01/2021 by Beck Inman MD at [facility] Right: Breast CR [employer] [id number] / / Procedures Procedure Name Priority Date/Time [...] Ibrahim CNP Authorized by: Merritt Ibrahim CNP [place] Protocol: Verbal consent obtained: Yes Written consent [...] SEE NARRATIVE - 04/15/2025 12:19 PM EDT [address] [address] Canoe Maker: Beto Estrella MD Surgical Pathology Report FINAL [...] hemorrhage, induration, fibrosis or necrosis grossly appreciated. Repairer And Checker sections are submitted in a single cassette labeled A1. Grossed by: VALENTINA Truong, PA(ASC) [id number] 04/14/2025 Grossing Staff: [id number] Patient Name: MARIELY MCINTYRE : 1980 (Age: 44) Sex: F Institution: [place] Location: [facility] Date of Operation: 04/13/2025 Date of Reported: 04/15/2025 12:19 Results To: Merritt Ibrahim MS, BS Dario Cho MD, BS Merritt Ibrahim [facility] PATHOLOGY ORDERABLES Ca singer Result [...] cm from the nipple there is a [id number] hyperintense, oval, clip containing, enhancing (progressive-type)mass measuring [...] Pap Test (09/18/2024 12:00 AM EDT) Report [address] [address] Canoe Maker: Beto Estrella MD LEAD ESTHETICIAN Cytology Report FINAL DIAGNOSIS A. PAP SMEAR (THIN PREP) CE: SPECIMEN ADEQUACY: Satisfactory for evaluation; transformation zone present. INTERPRETATION: NEGATIVE FOR INTRAEPITHELIAL LESION OR MALIGNANCY. This specimen was analyzed by the automated ThinPrep Imaging System ([facility] and the selected zamudio were reviewed by a lidder. Electronically Signed Out By: DILLON Garner(ASCP) The [...] : 1980 (Age: 44) Sex: F Institution: [place] Location: [facility] Date of Collection: 09/18/2024 Date of Reported: 09/24/2024 15:02 Results to: Dario Cho [facility] Final Diagnosis A. PAP SMEAR (THIN PREP) CE: SPECIMEN ADEQUACY: Satisfactory for evaluation; transformation zone present. INTERPRETATION: NEGATIVE FOR INTRAEPITHELIAL LESION OR MALIGNANCY. This specimen was analyzed by the automated ThinPrep Imaging System ([facility] and the selected zamudio were reviewed by a lidder. [facility] Conversion Type (Conversion Source) 09/18/2024 09/22/2024 10:21 AM EDT us Dario Cho MD CYTOLOGY ORDERABLE S Edited Result - Final [address] [address] * ENDOSCOPY, COLON (05/10/2020 1:35 PM EST) Narrative Transcriptions Kandace Poole MD - 05/10/2020 1:35 PM EST Patient Name: Mariely Cameron Attending MD:: KANDACE POOLE MD Procedure Date: 05/10/2020 1:35 PM Date of : 1980 Age: 39 Admit Type: Outpatient Gender: Female Room: [place] [address] Referring MD: Dario Cho MD Exam Type: [...] 1:35 PM Procedure Code(s): --- Professional --- 10815, Colonoscopy, flexible; diagnostic, including collection of specimen(s) by brushing or washing, when performed (separateprocedure) --- Technical --- 11501, Colonoscopy, flexible; diagnostic, including collection of specimen(s) [...] Full incontinence of feces CPT copyright 2018 [employer]. All rights reserved. The codes documented in this report are preliminary and upon rendering equipment tender reviewmay be revised to meet current compliance requirements. Procedure Date: 05/10/2020 1:35:31 PM [address] [id number] Dario Cho MD GI PROCEDURE ORDER JASON Final Result from Last 3 Months or Most Recently Relevant to Health Maintenance Insurance O [place] [address] [place], [place] [address]O O Member Subscriber Plan / Payer (Ef fective 2017-Present) Name:Mariely Mcintyre Relation to Subscriber:Spouse Name:MARTA MCINTYRE Date of :1900 (Home) Address: [address] [place] [address] Payer ID:Not on file Type:HMO Address: [place] [id number] O O HMO Care Teams Radiology Asst Relationship Specialty Start Date End Date Dario Melendez MD [address] [place] [phone] [email or web address] PCP - General Family Medicine 12/25/18 Additional Source Comments The information contained in this document represents components of the legal health record. It is not the complete legal health record.[facility]
--- OUTSIDE RECORDS SUMMARY | 2025-05-28 12:52 | XMS_ITS | Encounter Summary ---
Author Organization [facility] Address [address] [facility] [address] [place] [phone] Phone Care Team Providers Care Price Checker Name Role Phone Dario Melendez MD Primary Care Prov ider Reason for Referral * MRI/CAT Scan - Closed Specialty Diagnoses / Procedures Referred By Contac t Referred To Contact Radiology Diagnoses Abnormal result of other cardiovascular function study Procedures NC Stress Result for Nuclear Stress Test Diana Ha NP [address] [place] [address] Phone: tel: fax: [email or web address] Referral ID Status Reason Start Date Expiration Date Visits Re quested Visits Authorized [id number] Closed 01/06/2025 01/06/2026 1 1 Encounter Details Date Type Department Care Team (Late st Contact Info) Description 01/06/2025 Ancillary Orders Virtual Department [address] [place] [address] Diana Ha NP [address] [place] [address] [email or web address] Abnormal result of other cardiovascular function study [...] Description 08/11/2025 10:15 AM EST Office Visit [facility] [address] [facility] [address]rd Floor, [address] [place] [address] Jorge Wang MD [address] [facility], [address] [place] [address] documented as of this encounter Results * [...] predicted heart rate. [place] [address]. us Diana Ha NP CV NM CARDIAC Final R esult documented in this encounter Visit Diagnoses Diagnosis Abnormal result of other cardiovascular function study- Primary Abnormal result of other cardiovascular function study documented in this encounter Care Teams Price Checker Relationship Specialty Start Date End Date Dario Melendez MD [address] [place] [phone] [email or web address] PCP - General Family Medicine 12/25/18 documented as of this encounter Additional Source Comments The information contained in this document represents components of the legal health record. It is not the complete legal health record.[facility]
== END ==
LOC: HO.CARD 10:28
PROVIDERS: PCP Family Medicine; Visit Provider Nurse Practitioner Family
DX: R00.2 Palpitations (principal); R94.39 Abnormal result of other cardiovascular function study
CPT/HCPCS: 93242

== ENCOUNTER → 2025-05-28 10:29 | Outpatient (BNV) | payer OTHER, SELFPAY | PROVIDERS: PCP Family Medicine; Visit Provider Internal Medicine Cardiovascular Disease | DX: R00.2 Palpitations (principal) | CPT/HCPCS: 93244 ==